=== PATIENT | female | born 1960 | race Two or more races ===

== ENCOUNTER → 2017-04-15 | Outpatient (REF) | payer MEDICARE, MEDICAID ==
[~2017-04-15] MED LIST: ATOR40TA75 PO; DULO1CAP2 PO; GABA-282; HYDR50TA70 PO; IBUP80TA PO; LISI10TA4 PO; ROBA500T PO; VOLT1GEL15 TOP
[2017-04-15 12:04] LABS: MEAN CORPUSCULAR HEMOGLOBIN 33.4 pg (27.0-33.0); MEAN CORPUSCULAR HGB CONC 34.8 g/dl (32.0-36.5); MEAN CORPUSCULAR VOLUME 95.9 fl (80.0-96.0); RED CELL DISTRIBUTION WIDTH 11.9 % (11.5-14.5); WHITE BLOOD COUNT 8.9 K/mm3 (4.0-10.0)
[2017-04-15 12:36] LABS: ALBUMIN 3.9 GM/DL (3.2-5.2); ALBUMIN/GLOBULIN RATIO 1.03 (1.00-1.93); ALKALINE PHOSPHATASE 85 U/L (45-117); ALT/SGPT 48 U/L (12-78); ANION GAP 7 MEQ/L (8-16); AST/SGOT 19 U/L (15-37); BILIRUBIN,TOTAL 0.3 MG/DL (0.2-1.0); BLOOD UREA NITROGEN 11 MG/DL (7-18); CALCIUM LEVEL 9.2 MG/DL (8.5-10.1); CARBON DIOXIDE LEVEL 29 MEQ/L (21-32); CHLORIDE LEVEL 105 MEQ/L (98-107); CHOLESTEROL LEVEL 339 MG/DL (<200); CREATININE FOR GFR 0.76 MG/DL (0.55-1.02); GLOMERULAR FILTRATION RATE > 60.0 (>51); GLUCOSE, FASTING 98 MG/DL (70-105); POTASSIUM SERUM 4.3 MEQ/L (3.5-5.1); SODIUM LEVEL 141 MEQ/L (136-145); TOTAL PROTEIN 7.7 GM/DL (6.4-8.2); TRIGLYCERIDES LEVEL 457 MG/DL (<150)
[2017-04-15 12:50] LABS: BASOPHILS 2 % (0-4); EOSINOPHILS 1 % (0-5)
[2017-04-20 08:06] LABS: ACETAMINOPHEN Negative ug/mL (10-30); AMITRIPTYLINE None Detected (Not Estab.); BUTALBITAL None Detected ug/mL (1-10); DESIPRAMINE None Detected (Not Estab.); DIAZEPAM None Detected ug/mL (0.1-0.9); DOXEPIN None Detected (Not Estab.); ETHANOL Negative % (0.000-0.010); NORCHLORDIAZEPOXIDE None Detected ug/mL (0.1-0.6); NORDIAZEPAM None Detected ug/mL (0.1-1.4); NORDOXEPIN None Detected (Not Estab.); NORTRIPTYLINE None Detected ng/mL (50-150); PENTOBARBITAL None Detected ug/mL (1-5); PHENOBARBITAL None Detected ug/mL (15-40); PHENYTOIN None Detected ug/mL (10.0-20.0)
== END ==
LOC: M SFHCLERA 09:24
PROVIDERS: ATTEND Family Medicine
DX: I10 Essential (primary) hypertension (principal); E78.5 Hyperlipidemia, unspecified; G89.29 Other chronic pain; F31.32 Bipolar disorder, current episode depressed, moderate; Z79.899 Other long term (current) drug therapy
CPT/HCPCS: 80053; 80061; 82043; 83036; 84443; 84600; 85007; 85027; G0463; G0480

== ENCOUNTER 2017-04-27 17:56 | Emergency (ER) | payer MEDICARE, MEDICAID ==
[~2017-04-27] VITALS: Ht 160 cm; Wt 63.6 kg
[2017-04-27] MEDS ORDERED: IBUP80TA PO (18:14)
[2017-04-27] MEDS ORDERED: GABA-282 (18:14)
[2017-04-27] MEDS ORDERED: LISI10TA4 PO (18:14)
[2017-04-27] MEDS ORDERED: HYDR50TA70 PO (18:14)
[2017-04-27] MEDS ORDERED: DULO1CAP2 PO (18:14)
[2017-04-27] MEDS ORDERED: ATOR40TA75 PO (18:14)
[2017-04-27] MEDS ORDERED: VOLT1GEL15 TOP (18:14)
--- NOTE | 2017-04-27 19:40 | REPUSA ---
CT of the head Clinical history: trauma. Technique: Multiple axial CT images were obtained through the head without administration of contrast . Findings: The ventricles and sulci are symmetric bilaterally. There is no evidence of acute hemorrhag e or infarct. There is no midline shift, mass effect, or extra-axial fluid collection. The osseous st ructures are unremarkable. The visualized paranasal sinuses and mastoid air cells are clear. Impression: Negative study.
--- NOTE | 2017-04-27 19:40 | REPUSA ---
CT of the cervical spine Clinical history: trauma. Technique: Multiple axial CT images were obtained through the cervical spine without administration o f contrast. Coronal and sagittal 3-D reconstructed images were also obtained. Comparison: None. Findings: The cervical vertebral bodies are in satisfactory positioning and alignment. No fractures or dislocat ions are demonstrated. The odontoid process is intact. There is mild degenerative disc disease at C5/ C6. Intervertebral disc spaces are otherwise well-maintained. There is no evidence of facet subluxati on. The neural foramen appear grossly patent. The cervical cranial junction is intact. The cervical s florencia canal demonstrates normal caliber and contour without evidence of spinal stenosis. The surround ing soft tissues are within normal limits. Impression: No acute fracture or traumatic injury. Mild degenerative disc disease at C5/C6.
[2017-04-27] MEDS ORDERED: PERCOCET 5MG/325MG TAB PO ONE (20:00)
[2017-04-27] MEDS ORDERED: OXYCODONE/APAP 5MG/325MG(BULK FOR ED) 1 TABLET PO ONE (21:30)
[2017-04-27] MEDS ORDERED: ROBA500T PO (21:30)
[2017-04-27] MEDS ORDERED: METHOCARBAMOL 500 MG TAB PO ONE (21:30)
[2017-04-27 21:47] VITALS: BP 148/71
--- NOTE | 2017-04-28 08:04 | REP ---
LEFT KNEE: Five views. HISTORY: Trauma. FINDINGS: Five views of the left knee demonstrate that the patient is status post left knee arthroplasty. No fracture or subluxation is seen. IMPRESSION: No fracture noted. Signed by Boris Norton MD 04/28/2017 08:05 A
--- NOTE | 2017-04-28 08:04 | REP ---
PELVIS LEFT HIP: Three views. HISTORY: Trauma. FINDINGS: AP view of the pelvis and AP and frog-leg views of the left hip demonstrate an intact bony pelvic ring. No hip or sacral fracture is seen. No pelvic fracture is noted. The left hip views are unremarkable. IMPRESSION: No fracture noted. Signed by Boris Norton MD 04/28/2017 08:05 A
--- NOTE | 2017-04-28 08:05 | REP ---
RIGHT FOOT SERIES: Four views. HISTORY: Trauma. FINDINGS: Four views of the right foot demonstrate mild diffuse osteopenia. Bones joints and soft tissues are otherwise unremarkable. No fracture is seen. IMPRESSION: No fracture noted. Signed by Boris Norton MD 04/28/2017 08:30 A
== END 2017-04-27 22:25 | disposition home or self-care (01) ==
LOC: M ED 17:56
DX: M25.552 Pain in left hip (principal); M25.562 Pain in left knee; M79.671 Pain in right foot; I10 Essential (primary) hypertension; F41.9 Anxiety disorder, unspecified; F33.9 Major depressive disorder, recurrent, unspecified; Z79.899 Other long term (current) drug therapy

== ENCOUNTER → 2017-05-12 | Outpatient (CLI) | payer MEDICARE, MEDICAID ==
--- NOTE | 2017-06-02 01:53 | ECWPNPC ---
PATIENT NAME: CORIE CAST : 1960 GENDER: FEMALE VISIT DATE: 05/12/2017 DISCHARGE DATE: 05/12/17 1543 VISIT LOCKED DATE TIME: PHYSICIAN: LONNIE MCBRIDE RESOURCE: LONNIE MCBRIDE REASON FOR APPOINTMENT 1. BACK HISTORY OF PRESENT ILLNESS NEW PATIENT CONSULT: WHEN DID YOUR PAIN FIRST START? . BRIEFLY DESCRIBE HOW YOUR PAIN STARTED? . HOW DOES YOUR PAIN CHANGE WITH TIME? . DOES YOUR PAIN AWAKEN YOU FROM SLEEP? . HOW MANY HOURS OF SLEEP DO YOU NORMALLY GET? . ANY DIAGNOSTIC TESTING? . FACILITY WHERE TESTS WERE DONE? ____. PAIN TREATMENT TREATMENT YES CANCER HAVE YOU EVER HAD ANY TYPE OF CANCER?YES UTERINE NO. PAIN SCREENING: PATIENT HAS A COMPLAINT OF ACUTE OR CHRONIC PAIN :YES FALL RISK SCREENING: SCREENING :NO FALLS IN THE PAST YEAR MARTINEZ INVENTORY: QUESTIONNAIRE ASSESSEDYES SCORE VALUE CALCULATED YES SCORE: 8/63 DENIES SUICIDAL OR HOMICIDAL IDEATION TODAY'S VISIT: NOTES: REFERRED BY DR DONN SORENSEN FOR LOW BACK PAIN. RECENTLY MOVED FROM [place] AND STATES WAS ON CHRONIC OPIATES THERE. PAIN STARTED OVER 20 YEARS AGO WHEN SHE FELL A LAB HEAD. HAD INJECTION S IN EARLY [address] YOLA PERSAUD WITH SEDATION. IS NOT NOT SURE WHAT INJECTIONS WERE DONE. HAD PHYSICAL THERAPY - [facility] WHEN SHE LIVED IN [place]. USES CANE BUT ALSO A WALKER FOR SUPOPRT. PAIN IS CENTERED IN LOW BACK AND INTO LEGS TO FOOT. HAS A SENSE OF TINGLING. LAST MRI WAS WITHIN LAST YEAR BY DR PERSAUD. NO LOSS OF BOWEL CONTROL. N/T IN BOTH FEET. NO RECENT EMG/NCS. CURRENT MEDICATIONS TAKING MIRAPEX 0.25 MG TABLET 1 TABLET BEFORE BEDTIME ORALLY ONCE A DAY TAKING GABAPENTIN 300 MG CAPSULE 1 CAPSULE ORALLY 1 IN AM, 1 IN AFTERNOON AND 2 AT BEDTIME TAKING IBUPROFEN 800 MG TABLET 1 TABLET WITH FOOD OR MILK ORALLY THREE TIMES A DAY TAKING VOLTAREN 1 % GEL DIRECTED TRANSDERMAL EVERY 4 HOURS NEEDED TAKING SEROQUEL 300 MG TABLET 1 TABLET AT BEDTIME ORALLY BEFORE BEDTIME TAKING DULOXETINE HCL 30 MG CAPSULE DELAYED RELEASE PARTICLES 1 CAPSULE ORALLY DAILY TAKING HYDROXYZINE HCL 50 MG TABLET 1 TABLET NEEDED ORALLY EVERY 6 HRS NEEDED FOR ANXIETY TAKING ATORVASTATIN CALCIUM 40 MG TABLET 1 TABLET ORALLY ONCE A DAY TAKING TRAZODONE HCL 150 MG TABLET 1 TABLET AT BEDTIME ORALLY ONCE A DAY NOT-TAKING CLARITIN 10 MG TABLET 1 TABLET ORALLY ONCE A DAY NOT-TAKING LISINOPRIL 10 MG TABLET 1 TABLET ORALLY ONCE A DAY MEDICATION LIST REVIEWED AND RECONCILED WITH THE PATIENT PAST MEDICAL HISTORY CHRONIC BACK AND KNEE PAIN BIPOLAR/ MOOD SWINGS/ PANIC DISORDER HTN HIGH CHOLESTEROL UTERINE CANCER GERD OSTEOPOROSIS ALLERGIES N.K.D.A. SURGICAL HISTORY 2 C-SETIONS TUBAL FULL HYSTERECTOMY AGE 27 LEFT KNEE REPLACED 2014 LEFT WRIST ORIF FAMILY HISTORY FATHER: MOTHER: , DIAGNOSED WITH HEART DISEASE 2 BROTHER(S) , 1 SISTER(S) . 3DAUGHTER(S) - HEALTHY. SOCIAL HISTORY GENERAL: TOBACCO USE ARE YOU A:FORMER SMOKER HOW LONG HAS IT BEEN SINCE YOU LAST SMOKED?1-5 YEARS ALCOHOL SCREENING DID YOU HAVE A DRINK CONTAINING ALCOHOL IN THE PAST YEAR?YES HOW OFTEN DID YOU HAVE A DRINK CONTAINING ALCOHOL IN THE PAST YEAR?MONTHLY OR LESS (1 POINT) POINTS1 INTERPRETATIONNEGATIVE DIET: REGULAR. EXERCISE: WALKS WITH WALKER. DENOMINATIONAL [id number] RESTORATIONIST LEARNING BARRIERS / SPECIAL NEEDS HEARING IMPAIRED?NO VISION IMPAIRED?YES :CORRECTIVE LENSES COGNITIVELY IMPAIRED?NO READINESS TO LEARN?YES LEARNING PREFERENCES?NO LEARNING CAPABILITIES PRESENT?YES EMOTIONAL BARRIERS? BIPOLAR SPECIAL DEVICES?YES :[employer] ASSOCIATE NEEDED?NO PAIN CLINIC PFS, CLERGY, PUBLIC HEALTH REFERRALS PFS REFERRAL NEEDED?NO CLERGY REFERRAL NEEDED?NO PUBLIC HEALTH REFERRAL NEEDED?NO WAS THE PROVIDER NOTIFIED OF ANY PERTINENT INFO?NO HAS THE PATIENT BEEN EDUCATED REGARDING HIS/HER PLAN OF CARE?YES HAS THE PATIENT BEEN EDUCATED REGARDING PAIN, THE RISK FOR PAIN, THE IMPORTANCE OF EFFECTIVE PAIN MANAGEMENT, AND THE PAIN ASSESSMENT PROCESS?YES PATIENT: ____. ADVANCE DIRECTIVES HEALTH CARE PROXY?NO WOULD YOU LIKE MORE INFORMATION? IS CURRENTLY WORKING ON IT LIVING WILL?NO WOULD YOU LIKE MORE INFORMATION? CURRENTLY WORKING ON IT HOSPITALIZATION/MAJOR DIAGNOSTIC PROCEDURE ABOVE REVIEW OF SYSTEMS REVIEWED BY: PROVIDER: LONNIE ENGLISH . CONSTITUTIONAL: ANY CHANGE IN YOUR MEDICAL CONDITION? NO . CHILLS NO . FEVER NO . INFECTION: DO YOU HAVE NEW INFECTIONS? NO . DO YOU HAVE HISTORY OF MRSA? NO . MUSCULOSKELETAL: ANY NEW PATTERNS OF PAIN OR NUMBNESS? YES LEFT ARM AND SHOULDER REALLY BAD . SYTEMIC LUPUS NO . GASTROENTEROLOGY: ANY NEW CHANGE IN BOWEL CONTROL? NO . BARRETTS ESOPHAGUS NO . CIRRHOSIS NO . HEPATITIS NO . LIVER FAILURE NO . ACID REFLUX NO . UNEXPLAINED WEIGHT LOSS NO . GENITOURINARY: ANY NEW CHANGE IN BLADDER CONTROL? NO - OCCASIONAL LEAKAGE . IS THERE A CHANCE YOU COULD BE ? NO . HEMATOLOGY/LYMPH: DO YOU TAKE ANY BLOOD THINNERS? (FOR EXAMPLE- COUMADIN, PLAVIX, AGGRENOX, PLATEL, PRADAXA, OR XARELTO) NO . WHEN WAS YOUR LAST DOSE? DATE: TIME: . LOW PLATELET COUNT NO . SICKLE CELL DISEASE NO . VON WILLIEBRANDS NO . FACTOR V LEIDEN NO . THALLASEMIA NO . ANEMIA NO . EASY BRUISING NO . NEUROLOGY: HAVE YOU FALLEN IN THE PAST 6 MONTHS? YES, A COUPLE OF WEEKS AGO TRIPPED OVER HER FEET / WENT TO THE ER . ANY NEW EXTREMITY NUMBNESS OR WEAKNESS? NO . HEAD INJURY NO . DEMENTIA NO . CEREBRAL PALSY NO . MULTIPLE SCLEROSIS NO . DIZZINESS NO . HEADACHE NO . STROKES NO . VERTIGO NO . CARDIOLOGY: DO YOU HAVE A PACEMAKER OR DEFIBRILLATOR? NO . ANGINA NO . HEART ATTACK NO . HEART SURGERY NO . CONGESTIVE HEART FAILURE/FLUID OVERLOAD NO . CHEST PAIN NO . HIGH BLOOD PRESSURE YES . IRREGULAR HEART BEAT NO . RESPIRATORY: HAVE YOU BEEN SICK IN THE PAST WEEK? NO . FEVER NO . FLU LIKE SYMPTOMS? NO . CPAP NO . BYPAP NO . ASTHMA NO . EMPHYSEMA NO . CHRONIC LUNG DISEASES NO . SHORTNESS OF BREATH ON EXERTION NO . DO YOU USE ANY TYPE OF TOBACCO (SMOKE, SMOKELESS, CHEW)? NO . COUGH NO . SNORING NO . INTEGUMENTARY: DO YOU HAVE ANY RASHES OR OPEN SORES? NO . ALLERGIC/IMMUNO: ARE YOU ALLERGIC TO SHELLFISH OR IV DYE? NO . ANY NEW ALLERGIES? NO . PSYCHIATRIC: DO YOU HAVE THOUGHTS OF HURTING YOURSELF OR SOMEONE ELSE? NO . ARE YOU ABUSED, NEGLECTED, OR IN AN UNSAFE ENVIRONMENT? NO . ENDOCRINOLOGY: ARE YOU DIABETIC? NO . THYROID DISORDER NO . OTHER: DO YOU NEED ANY PRESCRIPTIONS? YES . IF YES, PLEASE LIST: PAIN MEDS . ANY NEW PROBLEMS WITH YOUR MEDICATIONS? NO . WHEN DID YOU LAST EAT? ____ . WHEN DID YOU LAST DRINK? ____ . WHAT DID YOU LAST DRINK? ____ . NAME OF PERSON DRIVING YOU HOME? ____ . DO YOU HAVE ANY OTHER QUESTIONS OR CONCERNS NO . PSYCHOLOGY: ARE YOU RECEIVING COUNSELING? HISTORY OF BIPOLAR DISORDER - HAS NOT YET SEEN A BEHAVIORAL HEALTH PROVIDER . VITAL SIGNS WT 149.6 LBS, HT 63 IN, BMI 26.50 INDEX, BP 136/87 MM HG, HR 79 /MIN, RR 16 /MIN, TEMP 96.9 F, OXYGEN SAT % 93%, NA INITIALS SC 14:37, REVIEWED BY: NL. EXAMINATION GENERAL EXAMINATION: GENERAL APPEARANCE:APPEARS OLDER THAN STATES AGE. PSYCHALERT , ORIENTED X 3 , APPROPRIATE MOOD AND AFFECT . HEENT:NORMOCEPHALIC, NO LYMPHADENOPATHY, NO THYROMEGLY. LUNGS:CLEAR TO AUSCULTATION BILATERALLY, NO WHEEZES, RALES OR RHONCHI. HEART:S1, S2 IN A REGULAR RATE AND RHYTHM. NO SIGNIFICANT MURMURS, RUBS OR GALLOPS NOTED. MUSCULOSKELETAL:WEAKNESS BILERALLY IN QUADS, NO SPECIFIC FOT DROP. POINT TENDERNESS OVER LUMBAR SPINOUS PROCESSES AND ACROSS LUMBOSACRAL AXIS. EXQUISITE TENDERNESS OVER BILATERAL SIJ REGION. CAN FLEX TO 30 DEGREES, EXTEND TO 5 DEGREES. SLR POS AT 10 DEGREES BILATERALLY. . EXTREMITIES:NO EDEMA . NEUROLOGIC EXAM:CN'S II-XII GROSSLY INTACT, PATCHY DYSESTHESIA BILATERAL LOWER EXTREMITIES, DTR'S TR - 1+ BILATERAL UPPER AND LOWER EXTREMITIES. NO CLONUS. ASSESSMENTS MYALGIA - M79.1 (PRIMARY) FIBROMYALGIA - M79.7 LUMBAGO WITH SCIATICA, RIGHT SIDE - M54.41 LUMBAGO WITH SCIATICA, LEFT SIDE - M54.42 OTHER CHRONIC PAIN - G89.29 TREATMENT MYALGIA START CARISOPRODOL TABLET, 350 MG, 1 TABLET NEEDED, ORALLY, BID MDD=2, 30 DAY(S), 60, REFILLS 1 NOTES: NEED RECORDS FROM DR YOLA ROSE [place] [phone], FALLS CARE PLAN: 1. RECOMMEND REMOVING ALL THROW RUGS. 2. RECOMMEND NIGHT LIGHTS 3. RECOMMEND WEARING RUBBER SOLED SHOES AND TO NOT GO BAREFOOT. 4.. ADVISED TO CHANGE POSITION SLOWLY FROM SUPINE TO STANDING TO AVOID DIZZINESS. 5. ADVISED TO USE ASSISTIVE DEVICE SUCH CANE OR WALKER 6. USE LIFELINE SERVICES OR KEEP PORTABLE PHONE READILY AVAILABLE, RISKS AND BENEFITS OF NARCOTIC/OPIOD MEDICATIONS WERE REVIEWED WITH PATIENT - THIS INCLUDES BUT IS NOT LIMITED TO RISK OF DEPENDANCE/DEVELOPMENT OF ADDICTION, MOOD DISTURBANCE AND DEPRESSION, OSTEOPOROSIS, HORMONAL AND LABIDAL CHANGES, RESPIRATORY DEPRESSION AND . PATIENT IS ADVISED NOT TO DRIVE WHILE ON THESE MEDICATIONS. CLINICAL NOTES: ISTOP REGISTRY REVIEWED AND DEMNOSTRATES COMPLLIANCE. #[id number]. PROCEDURE CODES FA211 ESTABILISHED PATIENT [facility] FACILITY CHARGE G8783 BP SCR PRFRM RCMDD DEFIND SCR INTVL G8730 PAIN ASSESS POS TOOL F/U PLAN DOC 3016F PT SCRND UNHLTHY [place] USE 1123F ACP DISCUSS/DSCN MKR DOCD 1036F TOBACCO NON-USER 0518F FALL PLAN OF CARE DOCD G8427 DOC MEDS VERIFIED W/PT OR RE G8420 BMI<30 AND >=22 CALC & DOCU 3288F FALL RISK ASSESSMENT DOCD DISPOSITION & COMMUNICATION FOLLOW UP 3 WEEKS (REASON: [place] DR YOLA PERSAUD [phone] NEED OFFICE, INJECTION TREATMENT REPORTS AND RECENT MRIS OF LUMBAR) ELECTRONICALLY SIGNED BY ISIDRA CHU ON 06/01/2017 AT 05:13 PM EDT DISCLAIMER : THIS IS A VISIT SUMMARY EXTRACTED FROM THE [employer] CHART. IT IS NOT A COPY OF THE [employer] PROGRESS NOTE. MTDD
== END ==
LOC: M PAIN 14:00
PROVIDERS: ATTEND Nurse Practitioner Family
DX: G89.29 Other chronic pain (principal); M79.7 Fibromyalgia; M54.41 Lumbago with sciatica, right side; M54.42 Lumbago with sciatica, left side; F31.32 Bipolar disorder, current episode depressed, moderate; I10 Essential (primary) hypertension; E78.00 Pure hypercholesterolemia, unspecified; E78.5 Hyperlipidemia, unspecified; K21.9 Gastro-esophageal reflux disease without esophagitis; M85.80 Other specified disorders of bone density and structure, unspecified site; G25.81 Restless legs syndrome; Z79.1 Long term (current) use of non-steroidal anti-inflammatories (NSAID); Z79.899 Other long term (current) drug therapy; Z87.891 Personal history of nicotine dependence

== ENCOUNTER → 2017-06-01 | Outpatient (CLI) | payer MEDICARE, MEDICAID ==
--- NOTE | 2017-06-28 00:14 | ECWPNPC ---
PATIENT NAME: CORIE CAST : 1960 GENDER: FEMALE VISIT DATE: 06/01/2017 DISCHARGE DATE: 06/01/17 1241 VISIT LOCKED DATE TIME: PHYSICIAN: LONNIE MCBRIDE RESOURCE: LONNIE MCBRIDE REASON FOR APPOINTMENT 1. LOW BACK HISTORY OF PRESENT ILLNESS HISTORY OF PRESENT ILLNESS: PAIN THE PATIENT DESCRIBES THE PAIN... FALL RISK SCREENING: SCREENING :NO FALLS IN THE PAST YEAR TODAY'S VISIT: NOTES: RATES PAIN TODAY 10/10. DESCRIBES PAIN CONSTANT, ACHING, TENDER AND THROBBING. PAIN INVOLES THE ENTIRE BODY, WITH THE WORST AREAS AT LOW BACK AND ACROSS THE SHOULDERS. STATES HAS HAD LESB IN THE PAST WITH GOOD EFFECT. STATES SOMA DOES HELP. WILL BE ATARTING THE [employer] PROGRAM. . CURRENT MEDICATIONS TAKING CARISOPRODOL 350 MG TABLET 1 TABLET NEEDED ORALLY BID MDD=2 TAKING LOSARTAN POTASSIUM 50 MG TABLET 1 TABLET ORALLY ONCE A DAY TAKING SEROQUEL 300 MG TABLET 1 TABLET AT BEDTIME ORALLY BEFORE BEDTIME TAKING TRAZODONE HCL 150 MG TABLET 1 TABLET AT BEDTIME ORALLY ONCE A DAY TAKING HYDROXYZINE HCL 50 MG TABLET 2 TABLET NEEDED ORALLY EVERY 6 HRS TAKING ATORVASTATIN CALCIUM 80 MG TABLET 1 TABLET ORALLY ONCE A DAY TAKING DULOXETINE HCL 30 MG CAPSULE DELAYED RELEASE PARTICLES 1 CAPSULE ORALLY TWICE A DAY TAKING GABAPENTIN 300 MG CAPSULE 1 CAPSULE ORALLY 1 IN AM, 1 IN AFTERNOON AND 2 AT BEDTIME TAKING IBUPROFEN 800 MG TABLET 1 TABLET WITH FOOD OR MILK ORALLY THREE TIMES A DAY NEEDED TAKING MIRAPEX 0.25 MG TABLET 1 TABLET BEFORE BEDTIME ORALLY ONCE A DAY TAKING VOLTAREN 1 % GEL 4G TRANSDERMAL ON THE LOW BACK EVERY 6 HOURS NEEDED NOT-TAKING ROPINIROLE HCL 0.25 MG TABLET 1 TABLET 1 TO 3 HOURS BEFORE BEDTIME ORALLY ONCE A DAY, NOTES: PLEASE CANCEL THE MIRAPEX AND FILL THIS INSTEAD NOT-TAKING CLARITIN 10 MG TABLET 1 TABLET ORALLY ONCE A DAY MEDICATION LIST REVIEWED AND RECONCILED WITH THE PATIENT PAST MEDICAL HISTORY CHRONIC BACK AND KNEE PAIN BIPOLAR/ MOOD SWINGS/ PANIC DISORDER HTN HIGH CHOLESTEROL UTERINE CANCER GERD OSTEOPOROSIS ALLERGIES N.K.D.A. SURGICAL HISTORY 2 C-SETIONS TUBAL FULL HYSTERECTOMY AGE 27 LEFT KNEE REPLACED 2014 LEFT WRIST ORIF SOCIAL HISTORY GENERAL: TOBACCO USE ARE YOU A:FORMER SMOKER HOW LONG HAS IT BEEN SINCE YOU LAST SMOKED?1-5 YEARS ALCOHOL SCREENING DID YOU HAVE A DRINK CONTAINING ALCOHOL IN THE PAST YEAR?YES POINTS1 INTERPRETATIONNEGATIVE HOW OFTEN DID YOU HAVE A DRINK CONTAINING ALCOHOL IN THE PAST YEAR?MONTHLY OR LESS (1 POINT) HOW MANY DRINKS DID YOU HAVE ON A TYPICAL DAY WHEN YOU WERE DRINKING IN THE PAST YEAR?1 OR 2 (0 POINTS) HOW OFTEN DID YOU HAVE SIX OR MORE DRINKS ON ONE OCCASION IN THE PAST YEAR?NEVER (0 POINTS) RECREATIONAL DRUG USE DRUG USE?NO CAFFEINE CAFFEINE USE?YES HOW OFTEN AND HOW MUCH? COFFEE 3, PEPSI - 1-2 HIV / HEP-C SCREENING HIV TEST OFFERED TO PATIENT:YES DATE OFFERED:05/19/2017 TEST ACCEPTED:NO REASON:PATIENT DECLINED HEP-C TEST OFFERED TO PATIENT:NO OCCUPATION: DISABLED. DIET: REGULAR. EXERCISE: WALKS WITH WALKER. MARITAL STATUS: SINGLE. VOODOO [id number] ORTHODOX LANGUAGE LANGUAGES SPOKEN:ZAMBIAN LEARNING BARRIERS / SPECIAL NEEDS CHANGE FROM LAST VISIT?NO BARRIERS TO LEARNING?NO HEARING IMPAIRED?NO VISION IMPAIRED?YES :CORRECTIVE LENSES COGNITIVELY IMPAIRED?NO READINESS TO LEARN?YES LEARNING PREFERENCES?NO LEARNING CAPABILITIES PRESENT?YES EMOTIONAL BARRIERS?YES BIPOLAR SPECIAL DEVICES?YES :REED AKHTAR VOCATIONAL TEACHER NEEDED?NO PAIN CLINIC PFS, CLERGY, PUBLIC HEALTH REFERRALS PFS REFERRAL NEEDED?NO CLERGY REFERRAL NEEDED?NO PUBLIC HEALTH REFERRAL NEEDED?NO WAS THE PROVIDER NOTIFIED OF ANY PERTINENT INFO?NO HAS THE PATIENT BEEN EDUCATED REGARDING HIS/HER PLAN OF CARE?YES HAS THE PATIENT BEEN EDUCATED REGARDING PAIN, THE RISK FOR PAIN, THE IMPORTANCE OF EFFECTIVE PAIN MANAGEMENT, AND THE PAIN ASSESSMENT PROCESS?YES PATIENT: ____. ADVANCE DIRECTIVES HEALTH CARE PROXY?NO WOULD YOU LIKE MORE INFORMATION? IS CURRENTLY WORKING ON IT LIVING WILL?NO WOULD YOU LIKE MORE INFORMATION? CURRENTLY WORKING ON IT HOSPITALIZATION/MAJOR DIAGNOSTIC PROCEDURE ABOVE REVIEW OF SYSTEMS REVIEWED BY: PROVIDER: LONNIE MCBRIDE WASHERY BOSS . CONSTITUTIONAL: ANY CHANGE IN YOUR MEDICAL CONDITION? NO . CHILLS NO . FEVER NO . INFECTION: DO YOU HAVE NEW INFECTIONS? NO . DO YOU HAVE HISTORY OF MRSA? NO . MUSCULOSKELETAL: ANY NEW PATTERNS OF PAIN OR NUMBNESS? NO . GASTROENTEROLOGY: ANY NEW CHANGE IN BOWEL CONTROL? NO . GENITOURINARY: ANY NEW CHANGE IN BLADDER CONTROL? NO . IS THERE A CHANCE YOU COULD BE ? NO . HEMATOLOGY/LYMPH: DO YOU TAKE ANY BLOOD THINNERS? (FOR EXAMPLE- COUMADIN, PLAVIX, AGGRENOX, PLATEL, PRADAXA, OR XARELTO) NO . WHEN WAS YOUR LAST DOSE? DATE: TIME: . NEUROLOGY: HAVE YOU FALLEN IN THE PAST 6 MONTHS? YES DAUGHTER IS CONCERNED ABOUT FALLS . ANY NEW EXTREMITY NUMBNESS OR WEAKNESS? NO . CARDIOLOGY: DO YOU HAVE A PACEMAKER OR DEFIBRILLATOR? NO . RESPIRATORY: HAVE YOU BEEN SICK IN THE PAST WEEK? NO . FEVER NO . FLU LIKE SYMPTOMS? NO . COUGH NO . INTEGUMENTARY: DO YOU HAVE ANY RASHES OR OPEN SORES? NO . ALLERGIC/IMMUNO: ARE YOU ALLERGIC TO SHELLFISH OR IV DYE? NO . ANY NEW ALLERGIES? NO . PSYCHIATRIC: DO YOU HAVE THOUGHTS OF HURTING YOURSELF OR SOMEONE ELSE? NO . ARE YOU ABUSED, NEGLECTED, OR IN AN UNSAFE ENVIRONMENT? NO . ENDOCRINOLOGY: ARE YOU DIABETIC? NO . OTHER: DO YOU NEED ANY PRESCRIPTIONS? YES PAIN . IF YES, PLEASE LIST: ____ . ANY NEW PROBLEMS WITH YOUR MEDICATIONS? NO . WHEN DID YOU LAST EAT? ____ . WHEN DID YOU LAST DRINK? ____ . WHAT DID YOU LAST DRINK? ____ . NAME OF PERSON DRIVING YOU HOME? ____ . DO YOU HAVE ANY OTHER QUESTIONS OR CONCERNS NO . VITAL SIGNS WT 150 LBS, HT 63 IN, BMI 26.57 INDEX, BP 138/81 MM HG, HR 80 /MIN, RR 18 /MIN, TEMP 98.7 F, OXYGEN SAT % 93%, NA INITIALS SC 11:28. EXAMINATION GENERAL EXAMINATION: PSYCHALERT , ORIENTED X 3 , APPROPRIATE MOOD AND AFFECT . LUNGS:CLEAR TO AUSCULTATION BILATERALLY. HEART:HEART RATE REGULAR. MUSCULOSKELETAL:MUSCLE STRENGTH TESTING 4/5 LEFT LOWER EXTREMITY WITH SIGNIFICANT LEFT QUAD EAKNESS NOTED. ; 5/5 RIGHT LOWER EXTREMITY. SLOW TO RISE TO STANDING POSITION. IS ABLE TO STAND INDEPENDANTLY BUT DOES USE WALKER FOR BALANCE AND SUPPORT. NO OBVIOUS FOOT DROP WHEN WALKING., TRIGGER POINTS AND TIGHT FIBROUS BANDS NOTED OVER LUMBAR PARAVERTEBRAL MUSCLES. POINT TENDERNESS OVER THORACIC AND LUMBAR SPINOUS PROCESSES. . DIAGNOSTIC TESTS REVIEWEDMRI LUMBAR SPINE COMPLETED ON 06/01/16 ([facility] [place]) DEMONSTRATES MULTILEVEL DEGENERATIVE AND OR FACET OSTEOARTHRITIS WITHOUT SIGNIFICANT CENTRAL OR FORAMINAL ENCROUCHMENT. AT L4-5 ON THE LEFT THERE IS LOW GRADE STRESS RELATED EDEMA OF THE POSTERIOR ELEMENTS DUE TO FACET OSTEOARTHRITIS. . 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 CLINICAL NOTES: ISTOP REGISTRY REVIEWED AND DEMNOSTRATES COMPLLIANCE. . (REF # [id number]). PROCEDURE CODES FA211 ESTABILISHED PATIENT [facility] CHARGE G8730 PAIN ASSESS POS TOOL F/U PLAN DOC G8427 DOC MEDS VERIFIED W/PT OR RE DISPOSITION & COMMUNICATION FOLLOW UP AFTER INJECTION (REASON: CHECK AUTH FOR LESB) ELECTRONICALLY SIGNED BY ISIDRA CHU ON 06/27/2017 AT 07:27 PM EDT DISCLAIMER : THIS IS A VISIT SUMMARY EXTRACTED FROM THE [employer] CHART. IT IS NOT A COPY OF THE [employer] PROGRESS NOTE. JESÚSD
== END ==
LOC: M PAIN 10:30
PROVIDERS: ATTEND Nurse Practitioner Family
DX: G89.29 Other chronic pain (principal); M51.26 Other intervertebral disc displacement, lumbar region; M12.88 Other specific arthropathies, not elsewhere classified, other specified site; M79.1 Myalgia; F31.32 Bipolar disorder, current episode depressed, moderate; I10 Essential (primary) hypertension; E78.5 Hyperlipidemia, unspecified; K21.9 Gastro-esophageal reflux disease without esophagitis; Z79.1 Long term (current) use of non-steroidal anti-inflammatories (NSAID); Z79.899 Other long term (current) drug therapy; Z87.891 Personal history of nicotine dependence

== ENCOUNTER → 2017-10-01 | Outpatient (CLI) | payer MEDICARE, MEDICAID | LOC: M PAIN 10:45 | DX: M51.26 Other intervertebral disc displacement, lumbar region (principal); M79.7 Fibromyalgia; M25.561 Pain in right knee; I10 Essential (primary) hypertension; E78.5 Hyperlipidemia, unspecified; K21.9 Gastro-esophageal reflux disease without esophagitis; Z79.891 Long term (current) use of opiate analgesic; Z79.899 Other long term (current) drug therapy; Z87.891 Personal history of nicotine dependence | CPT/HCPCS: G0463 ==

== ENCOUNTER → 2017-10-19 | Outpatient (CLI) | payer MEDICARE, MEDICAID ==
[~2017-10-19] MED LIST changes: -ATOR40TA75 PO; -DULO1CAP2 PO; -GABA-282; -HYDR50TA70 PO; -IBUP80TA PO; +ISOVUE-M 300 61% 15ML VIAL (Q9967) As Ordered; +LIDOCAINE 1% SDV INJ 30 ML VIAL As Ordered; -LISI10TA4 PO; -ROBA500T PO; -VOLT1GEL15 TOP; +diazePAM 5 MG TAB As Ordered; +methylPREDNISolone SUSP 40 MG/ML (DEPO-medrol) VIAL (J1030) As Ordered; +oxyCODONE 5MG TAB As Ordered
== END ==
LOC: M PAIN 10:45
DX: G89.29 Other chronic pain (principal); M51.16 Intervertebral disc disorders with radiculopathy, lumbar region; F31.9 Bipolar disorder, unspecified; F41.0 Panic disorder [episodic paroxysmal anxiety]; I10 Essential (primary) hypertension; E78.00 Pure hypercholesterolemia, unspecified; K21.9 Gastro-esophageal reflux disease without esophagitis; Z79.899 Other long term (current) drug therapy; Z87.891 Personal history of nicotine dependence
CPT/HCPCS: J1030

== ENCOUNTER 2017-11-21 16:30 | Inpatient (IN) | payer MEDICARE, MEDICAID ==
[2017-11-21 16:56] LABS: BASO # 0.1 10^3/uL (0.0-0.2); BASO % 0.6 % (0.0-1.0); EOS % 0.1 % (0.0-3.0); HEMATOCRIT 30.1 % (36.0-47.0); HEMOGLOBIN 9.9 g/dl (12.0-16.0); IMMATURE GRANULOCYTE % 3.4 % (0-3.0); LYMPH # 3.2 10^3/uL (1.5-4.5); LYMPH % 23.5 % (24.0-44.0); MEAN CORPUSCULAR HEMOGLOBIN 28.5 pg (27.0-33.0); MEAN CORPUSCULAR HGB CONC 32.9 g/dl (32.0-36.5); MEAN CORPUSCULAR VOLUME 86.7 fl (80.0-96.0); MONO # 0.9 10^3/uL (0.0-0.8); NEUTROPHILS # 8.8 10^3/uL (1.8-7.7); NEUTROPHILS % 65.4 % (36.0-66.0); PLATELET COUNT, AUTOMATED 463 10^3/uL (150-450); RED BLOOD COUNT 3.47 10^6/uL (4.00-5.40); RED CELL DISTRIBUTION WIDTH 14.7 % (11.5-14.5); WHITE BLOOD COUNT 13.4 10^3/uL (4.0-10.0)
[2017-11-21 17:15] LABS: ANION GAP 10 MEQ/L (8-16); BLOOD UREA NITROGEN 8 MG/DL (7-18); CALCIUM LEVEL 8.3 MG/DL (8.5-10.1); CARBON DIOXIDE LEVEL 25 MEQ/L (21-32); CHLORIDE LEVEL 101 MEQ/L (98-107); CREATININE FOR GFR 0.55 MG/DL (0.55-1.30); GLOMERULAR FILTRATION RATE > 60.0 (>51); GLUCOSE, FASTING 110 MG/DL (70-100); SODIUM LEVEL 136 MEQ/L (136-145)
[2017-11-21 17:22] LABS: POTASSIUM SERUM 2.7 MEQ/L (3.5-5.1)
[2017-11-21 17:26] LABS: INFLUENZA A AMPLIFICATION NEGATIVE (NEGATIVE); INFLUENZA B AMPLIFICATION NEGATIVE (NEGATIVE)
[2017-11-21] MEDS ORDERED: ISOVUE-370 76% 100ML VIAL (Q9967) As Ordered (17:56)
[2017-11-21] MEDS: BENZONATATE 100 MG CAP PO ×2 (17:59→23:19)
[2017-11-21] MEDS: ONDANSETRON 4MG/2ML VIAL (J2405) IV (17:59)
[2017-11-21] MEDS: POTASSIUM CHLORIDE 10 MEQ SR TABLET PO (18:00)
[2017-11-21] MEDS: NS 1,000 ML IV (18:00)
[2017-11-21] MEDS: KCL 10MEQ/100ML SWI (KRUN) 10 MEQ in APPROPRIATE DILUENT 1 EA IV (18:15)
[2017-11-21] MEDS: PERCOCET 5MG/325MG TAB PO (18:22)
[2017-11-21 19:09] LABS: ALBUMIN 1.9 GM/DL (3.2-5.2); ALBUMIN/GLOBULIN RATIO 0.31 (1.00-1.93); ALKALINE PHOSPHATASE 185 U/L (45-117); ALT/SGPT 133 U/L (12-78); AST/SGOT 255 U/L (7-37); BILIRUBIN,DIRECT 0.2 MG/DL (0.0-0.2); BILIRUBIN,TOTAL 0.3 MG/DL (0.2-1.0); TOTAL PROTEIN 8.1 GM/DL (6.4-8.2)
[2017-11-21] MEDS ORDERED: ONDANSETRON 4MG/2ML VIAL (J2405) IV (19:45)
[2017-11-21] MEDS ORDERED: IPRATROPIUM 0.5MG/ALBUTEROL 2.5MG INH SOL UD 3ML (DUONEB)(J7620) NEB (19:45)
[2017-11-21] MEDS: IPRATROPIUM 0.5MG/ALBUTEROL 2.5MG INH SOL UD 3ML (DUONEB)(J7620) NEB (20:00)
[2017-11-21] MEDS: HEPARIN SOD (PORCINE) 5000 UNITS/ML VIAL SC (22:09)
[2017-11-21] MEDS: CARISOPRODOL 350 MG TAB PO (22:09)
[2017-11-21] MEDS: ATORVASTATIN 20 MG TAB PO (22:10)
[2017-11-21] MEDS: GABAPENTIN 300 MG CAP PO (22:10)
[2017-11-21] MEDS: traZODone 50 MG TAB PO (22:10)
[2017-11-21] MEDS: rOPINIRole 0.25 MG TAB(REQUIP) PO (22:10)
[2017-11-21] MEDS: MAGNESIUM OXIDE 400 MG TAB (MAG-OX) PO (22:11)
[2017-11-21] MEDS: KCL 20MEQ in NS 1000ML 1,000 ML IV (22:11)
[2017-11-21] MEDS: DULoxetine 30 MG CAP (CYMBALTA) PO (22:11)
[2017-11-21] MEDS: CEFTRIAXONE SOD 1 GM in APPROPRIATE DILUENT 1 EA IV (22:32)
[2017-11-21 23:15] LABS: MAGNESIUM LEVEL 2.2 MG/DL (1.8-2.4)
[2017-11-21 23:15] LABS: POTASSIUM SERUM 3.4 MEQ/L (3.5-5.1)
[2017-11-21] MEDS: ACETAMINOPHEN TAB 650MG DOSE (2X325MG) PO (23:19)
[2017-11-21] MEDS: AZITHROMYCIN INJ 500 MG, VIAL MATE ADAPTER 1 EACH in D5W 250 ML IV (23:20)
[2017-11-22] MEDS: IPRATROPIUM 0.5MG/ALBUTEROL 2.5MG INH SOL UD 3ML (DUONEB)(J7620) NEB ×4 (02:00→19:44)
[2017-11-22] MEDS: BENZONATATE 100 MG CAP PO ×3 (03:55→22:35)
[2017-11-22] MEDS: ACETAMINOPHEN TAB 650MG DOSE (2X325MG) PO (03:55)
[2017-11-22] MEDS: HEPARIN SOD (PORCINE) 5000 UNITS/ML VIAL SC ×3 (05:19→21:36)
[2017-11-22 06:05] LABS: HEMATOCRIT 25.2 % (36.0-47.0); HEMOGLOBIN 8.3 g/dl (12.0-16.0); MEAN CORPUSCULAR HEMOGLOBIN 29.3 pg (27.0-33.0); MEAN CORPUSCULAR HGB CONC 32.9 g/dl (32.0-36.5); PLATELET COUNT, AUTOMATED 384 10^3/uL (150-450); RED BLOOD COUNT 2.83 10^6/uL (4.00-5.40); RED CELL DISTRIBUTION WIDTH 14.9 % (11.5-14.5); WHITE BLOOD COUNT 11.8 10^3/uL (4.0-10.0)
[2017-11-22 06:16] LABS: ANION GAP 8 MEQ/L (8-16); BLOOD UREA NITROGEN 7 MG/DL (7-18); CALCIUM LEVEL 7.6 MG/DL (8.5-10.1); CARBON DIOXIDE LEVEL 24 MEQ/L (21-32); CHLORIDE LEVEL 107 MEQ/L (98-107); CREATININE FOR GFR 0.42 MG/DL (0.55-1.30); GLOMERULAR FILTRATION RATE > 60.0 (>51); GLUCOSE, FASTING 119 MG/DL (70-100); POTASSIUM SERUM 3.3 MEQ/L (3.5-5.1); SODIUM LEVEL 139 MEQ/L (136-145)
[2017-11-22] MEDS: POTASSIUM CHLORIDE 10 MEQ SR TABLET PO ×2 (06:31→21:36)
[2017-11-22] MEDS: GABAPENTIN 300 MG CAP PO ×3 (08:27→21:36)
[2017-11-22] MEDS: CARISOPRODOL 350 MG TAB PO ×2 (08:27→21:36)
[2017-11-22] MEDS: INFLUENZA QUADRIVALENT PF VACCINE 0.5ML SYRINGE (90686) IM (08:29)
[2017-11-22 10:47] LABS: ALBUMIN 1.6 GM/DL (3.2-5.2); ALKALINE PHOSPHATASE 152 U/L (45-117); ALT/SGPT 102 U/L (12-78); AST/SGOT 145 U/L (7-37); BILIRUBIN,DIRECT 0.2 MG/DL (0.0-0.2); BILIRUBIN,TOTAL 0.2 MG/DL (0.2-1.0)
[2017-11-22 11:00] LABS: ALBUMIN/GLOBULIN RATIO 0.36 (1.00-1.93)
[2017-11-22 11:01] LABS: TOTAL PROTEIN 6.1 GM/DL (6.4-8.2)
[2017-11-22] MEDS: DOXYCYCLINE HYCLATE 100 MG in D5W MINI-BAG PLUS 100 ML IV (12:27)
[2017-11-22] MEDS: KCL 20MEQ in NS 1000ML 1,000 ML IV (12:27)
[2017-11-22] MEDS: CEFTRIAXONE SOD 2 GM in APPROPRIATE DILUENT 1 EA IV (12:27)
[2017-11-22] MEDS: PERCOCET 5MG/325MG TAB PO ×2 (12:29→17:55)
[2017-11-22] MEDS ORDERED: LISINOPRIL 10 MG TAB PO (18:00)
[2017-11-22] MEDS: DULoxetine 30 MG CAP (CYMBALTA) PO (21:35)
[2017-11-22] MEDS: ATORVASTATIN 20 MG TAB PO (21:35)
[2017-11-22] MEDS: rOPINIRole 0.25 MG TAB(REQUIP) PO (21:36)
[2017-11-22] MEDS: traZODone 50 MG TAB PO (21:36)
[2017-11-23] MEDS: DOXYCYCLINE HYCLATE 100 MG in D5W MINI-BAG PLUS 100 ML IV (00:02)
[2017-11-23] MEDS: PERCOCET 5MG/325MG TAB PO ×4 (00:02→18:17)
[2017-11-23] MEDS: IPRATROPIUM 0.5MG/ALBUTEROL 2.5MG INH SOL UD 3ML (DUONEB)(J7620) NEB ×4 (01:40→20:36)
[2017-11-23] MEDS: KCL 20MEQ in NS 1000ML 1,000 ML IV ×2 (03:20→11:45)
[2017-11-23] MEDS: BENZONATATE 100 MG CAP PO ×4 (03:20→21:30)
[2017-11-23 06:03] LABS: HEMATOCRIT 25.9 % (36.0-47.0); HEMOGLOBIN 8.1 g/dl (12.0-16.0); MEAN CORPUSCULAR HEMOGLOBIN 28.7 pg (27.0-33.0); MEAN CORPUSCULAR HGB CONC 31.3 g/dl (32.0-36.5); MEAN CORPUSCULAR VOLUME 91.8 fl (80.0-96.0); PLATELET COUNT, AUTOMATED 370 10^3/uL (150-450); RED BLOOD COUNT 2.82 10^6/uL (4.00-5.40); RED CELL DISTRIBUTION WIDTH 15.2 % (11.5-14.5); WHITE BLOOD COUNT 9.7 10^3/uL (4.0-10.0)
[2017-11-23] MEDS: HEPARIN SOD (PORCINE) 5000 UNITS/ML VIAL SC ×3 (06:09→21:30)
[2017-11-23 06:20] LABS: ANION GAP 5 MEQ/L (8-16); BLOOD UREA NITROGEN 5 MG/DL (7-18); CALCIUM LEVEL 7.8 MG/DL (8.5-10.1); CARBON DIOXIDE LEVEL 26 MEQ/L (21-32); CHLORIDE LEVEL 112 MEQ/L (98-107); CREATININE FOR GFR 0.47 MG/DL (0.55-1.30); GLOMERULAR FILTRATION RATE > 60.0 (>51); GLUCOSE, FASTING 117 MG/DL (70-100); POTASSIUM SERUM 4.4 MEQ/L (3.5-5.1); SODIUM LEVEL 143 MEQ/L (136-145)
[2017-11-23] MEDS: GABAPENTIN 300 MG CAP PO ×3 (08:16→20:11)
[2017-11-23] MEDS: CARISOPRODOL 350 MG TAB PO ×2 (08:16→20:11)
[2017-11-23] MEDS: POTASSIUM CHLORIDE 10 MEQ SR TABLET PO ×2 (08:17→20:12)
[2017-11-23] MEDS: AZITHROMYCIN INJ 500 MG, VIAL MATE ADAPTER 1 EACH in D5W 250 ML IV (11:32)
[2017-11-23] MEDS ORDERED: MIRALAX *UNIT DOSE* 17GM PACKET PO (11:45)
[2017-11-23] MEDS: DOCUSATE SODIUM 100 MG CAP PO ×2 (12:11→20:11)
[2017-11-23] MEDS: CEFTRIAXONE SOD 2 GM in APPROPRIATE DILUENT 1 EA IV (12:43)
[2017-11-23 13:19] LABS: FERRITIN 586 NG/ML (8-252); IRON (FE) 48 UG/DL (50-170); PERCENT SATURATION 26.1 % (13.2-45.0); TOTAL IRON BINDING CAPACITY 184 UG/DL (250-450)
[2017-11-23 13:26] LABS: VITAMIN B12 LEVEL 438 PG/ML (247-911)
[2017-11-23 13:27] LABS: FOLATE 2.9 NG/ML (>5.4)
[2017-11-23 17:42] LABS: IMMEDIATE SPIN CROSSMATCH 1 2
[2017-11-23] MEDS: traZODone 50 MG TAB PO (20:10)
[2017-11-23] MEDS: ATORVASTATIN 20 MG TAB PO (20:11)
[2017-11-23] MEDS: DULoxetine 30 MG CAP (CYMBALTA) PO (20:11)
[2017-11-23] MEDS: rOPINIRole 0.25 MG TAB(REQUIP) PO (20:12)
[2017-11-23 22:08] LABS: HEMOGLOBIN 10.9 g/dl (12.0-16.0)
[2017-11-23] MEDS: IBUPROFEN 800 MG TAB PO (22:55)
[2017-11-24] MEDS: PERCOCET 5MG/325MG TAB PO ×5 (00:20→23:28)
[2017-11-24] MEDS: IPRATROPIUM 0.5MG/ALBUTEROL 2.5MG INH SOL UD 3ML (DUONEB)(J7620) NEB ×4 (02:00→20:11)
[2017-11-24] MEDS: BENZONATATE 100 MG CAP PO ×5 (03:53→21:19)
[2017-11-24] MEDS: HEPARIN SOD (PORCINE) 5000 UNITS/ML VIAL SC ×3 (06:20→21:17)
[2017-11-24 06:22] LABS: HEMATOCRIT 34.6 % (36.0-47.0); MEAN CORPUSCULAR HEMOGLOBIN 28.5 pg (27.0-33.0); MEAN CORPUSCULAR HGB CONC 31.8 g/dl (32.0-36.5); MEAN CORPUSCULAR VOLUME 89.6 fl (80.0-96.0); PLATELET COUNT, AUTOMATED 334 10^3/uL (150-450); RED BLOOD COUNT 3.86 10^6/uL (4.00-5.40); RED CELL DISTRIBUTION WIDTH 16.1 % (11.5-14.5); WHITE BLOOD COUNT 9.1 10^3/uL (4.0-10.0)
[2017-11-24 06:35] LABS: ALBUMIN 1.6 GM/DL (3.2-5.2); ALBUMIN/GLOBULIN RATIO 0.31 (1.00-1.93); ALKALINE PHOSPHATASE 149 U/L (45-117); ALT/SGPT 70 U/L (12-78); ANION GAP 6 MEQ/L (8-16); AST/SGOT 51 U/L (7-37); BILIRUBIN,TOTAL 0.2 MG/DL (0.2-1.0); BLOOD UREA NITROGEN 4 MG/DL (7-18); CALCIUM LEVEL 8.2 MG/DL (8.5-10.1); CARBON DIOXIDE LEVEL 25 MEQ/L (21-32); CHLORIDE LEVEL 113 MEQ/L (98-107); CREATININE FOR GFR 0.42 MG/DL (0.55-1.30); GLOMERULAR FILTRATION RATE > 60.0 (>51); GLUCOSE, FASTING 122 MG/DL (70-100); MAGNESIUM LEVEL 1.8 MG/DL (1.8-2.4); POTASSIUM SERUM 4.4 MEQ/L (3.5-5.1); SODIUM LEVEL 144 MEQ/L (136-145); TOTAL PROTEIN 6.8 GM/DL (6.4-8.2)
[2017-11-24] MEDS: PIPERACILLIN/TAZOBACTAM SOD 3.375 GM in APPROPRIATE DILUENT 1 EA IV ×3 (08:34→17:59)
[2017-11-24] MEDS: GABAPENTIN 300 MG CAP PO ×3 (08:34→21:19)
[2017-11-24] MEDS: CARISOPRODOL 350 MG TAB PO ×2 (08:34→21:18)
[2017-11-24] MEDS: DOCUSATE SODIUM 100 MG CAP PO ×2 (08:34→21:18)
[2017-11-24] MEDS: POTASSIUM CHLORIDE 10 MEQ SR TABLET PO (08:35)
[2017-11-24] MEDS: IBUPROFEN 800 MG TAB PO ×2 (08:35→21:17)
[2017-11-24] MEDS: FOLIC ACID 1 MG TAB PO (12:18)
[2017-11-24] MEDS: DULoxetine 30 MG CAP (CYMBALTA) PO (21:18)
[2017-11-24] MEDS: ATORVASTATIN 20 MG TAB PO (21:19)
[2017-11-24] MEDS: rOPINIRole 0.25 MG TAB(REQUIP) PO (21:19)
[2017-11-24] MEDS: traZODone 50 MG TAB PO (21:19)
[2017-11-25] MEDS: PIPERACILLIN/TAZOBACTAM SOD 3.375 GM in APPROPRIATE DILUENT 1 EA IV ×4 (01:18→18:12)
[2017-11-25] MEDS: BENZONATATE 100 MG CAP PO ×5 (01:18→23:09)
[2017-11-25] MEDS: IPRATROPIUM 0.5MG/ALBUTEROL 2.5MG INH SOL UD 3ML (DUONEB)(J7620) NEB ×5 (01:40→23:58)
[2017-11-25] MEDS: HEPARIN SOD (PORCINE) 5000 UNITS/ML VIAL SC ×3 (05:37→22:01)
[2017-11-25] MEDS: PERCOCET 5MG/325MG TAB PO ×3 (05:38→18:30)
[2017-11-25 06:29] LABS: HEMATOCRIT 35.3 % (36.0-47.0); HEMOGLOBIN 11.5 g/dl (12.0-16.0); MEAN CORPUSCULAR HEMOGLOBIN 29.2 pg (27.0-33.0); MEAN CORPUSCULAR HGB CONC 32.6 g/dl (32.0-36.5); MEAN CORPUSCULAR VOLUME 89.6 fl (80.0-96.0); PLATELET COUNT, AUTOMATED 356 10^3/uL (150-450); RED BLOOD COUNT 3.94 10^6/uL (4.00-5.40); RED CELL DISTRIBUTION WIDTH 16.2 % (11.5-14.5); WHITE BLOOD COUNT 9.5 10^3/uL (4.0-10.0)
[2017-11-25 06:56] LABS: ALBUMIN 1.7 GM/DL (3.2-5.2); ALBUMIN/GLOBULIN RATIO 0.32 (1.00-1.93); ALKALINE PHOSPHATASE 152 U/L (45-117); ALT/SGPT 56 U/L (12-78); ANION GAP 6 MEQ/L (8-16); AST/SGOT 38 U/L (7-37); BILIRUBIN,TOTAL 0.2 MG/DL (0.2-1.0); BLOOD UREA NITROGEN 6 MG/DL (7-18); CALCIUM LEVEL 8.9 MG/DL (8.5-10.1); CARBON DIOXIDE LEVEL 28 MEQ/L (21-32); CHLORIDE LEVEL 108 MEQ/L (98-107); CREATININE FOR GFR 0.55 MG/DL (0.55-1.30); GLOMERULAR FILTRATION RATE > 60.0 (>51); GLUCOSE, FASTING 101 MG/DL (70-100); MAGNESIUM LEVEL 1.7 MG/DL (1.8-2.4); POTASSIUM SERUM 4.5 MEQ/L (3.5-5.1); SODIUM LEVEL 142 MEQ/L (136-145)
[2017-11-25 08:51] LABS: FOLATE 2.4 NG/ML (>5.4)
[2017-11-25] MEDS: GABAPENTIN 300 MG CAP PO ×3 (08:55→20:03)
[2017-11-25] MEDS: POTASSIUM CHLORIDE 10 MEQ SR TABLET PO (08:56)
[2017-11-25] MEDS: FOLIC ACID 1 MG TAB PO (08:56)
[2017-11-25] MEDS: CARISOPRODOL 350 MG TAB PO ×2 (08:56→20:03)
[2017-11-25] MEDS: DOCUSATE SODIUM 100 MG CAP PO ×2 (08:56→20:03)
[2017-11-25] MEDS: MAG SULF 1GM/100ML (MAG RUN) 1 GM in APPROPRIATE DILUENT 1 EA IV ×2 (14:07→15:00)
[2017-11-25] MEDS: IBUPROFEN 800 MG TAB PO ×2 (15:52→22:00)
[2017-11-25] MEDS: traZODone 50 MG TAB PO (20:03)
[2017-11-25] MEDS: rOPINIRole 0.25 MG TAB(REQUIP) PO (20:03)
[2017-11-25] MEDS: DULoxetine 30 MG CAP (CYMBALTA) PO (20:03)
[2017-11-25] MEDS: ATORVASTATIN 20 MG TAB PO (20:04)
[2017-11-26] MEDS: PERCOCET 5MG/325MG TAB PO ×4 (00:41→20:03)
[2017-11-26] MEDS: PIPERACILLIN/TAZOBACTAM SOD 3.375 GM in APPROPRIATE DILUENT 1 EA IV ×3 (01:00→13:00)
[2017-11-26 06:35] LABS: HEMATOCRIT 37.9 % (36.0-47.0); HEMOGLOBIN 11.9 g/dl (12.0-16.0); MEAN CORPUSCULAR HEMOGLOBIN 28.7 pg (27.0-33.0); MEAN CORPUSCULAR HGB CONC 31.4 g/dl (32.0-36.5); MEAN CORPUSCULAR VOLUME 91.3 fl (80.0-96.0); PLATELET COUNT, AUTOMATED 380 10^3/uL (150-450); RED BLOOD COUNT 4.15 10^6/uL (4.00-5.40); RED CELL DISTRIBUTION WIDTH 16.1 % (11.5-14.5); WHITE BLOOD COUNT 9.7 10^3/uL (4.0-10.0)
[2017-11-26] MEDS: BENZONATATE 100 MG CAP PO ×3 (06:53→20:08)
[2017-11-26] MEDS: HEPARIN SOD (PORCINE) 5000 UNITS/ML VIAL SC ×3 (06:54→23:21)
[2017-11-26 06:57] LABS: ALBUMIN 1.9 GM/DL (3.2-5.2); ALBUMIN/GLOBULIN RATIO 0.37 (1.00-1.93); ALKALINE PHOSPHATASE 147 U/L (45-117); ALT/SGPT 47 U/L (12-78); ANION GAP 4 MEQ/L (8-16); AST/SGOT 27 U/L (7-37); BILIRUBIN,TOTAL 0.2 MG/DL (0.2-1.0); BLOOD UREA NITROGEN 9 MG/DL (7-18); CALCIUM LEVEL 8.6 MG/DL (8.5-10.1); CARBON DIOXIDE LEVEL 31 MEQ/L (21-32); CHLORIDE LEVEL 106 MEQ/L (98-107); CREATININE FOR GFR 0.57 MG/DL (0.55-1.30); GLOMERULAR FILTRATION RATE > 60.0 (>51); GLUCOSE, FASTING 94 MG/DL (70-100); MAGNESIUM LEVEL 2.4 MG/DL (1.8-2.4); POTASSIUM SERUM 4.4 MEQ/L (3.5-5.1); SODIUM LEVEL 141 MEQ/L (136-145)
[2017-11-26] MEDS: IPRATROPIUM 0.5MG/ALBUTEROL 2.5MG INH SOL UD 3ML (DUONEB)(J7620) NEB ×3 (07:35→20:00)
[2017-11-26] MEDS: FOLIC ACID 1 MG TAB PO (08:55)
[2017-11-26] MEDS: DOCUSATE SODIUM 100 MG CAP PO ×2 (08:55→20:01)
[2017-11-26] MEDS: CARISOPRODOL 350 MG TAB PO ×2 (08:55→20:02)
[2017-11-26] MEDS: POTASSIUM CHLORIDE 10 MEQ SR TABLET PO (08:55)
[2017-11-26] MEDS: GABAPENTIN 300 MG CAP PO ×3 (08:55→20:02)
[2017-11-26] MEDS: IBUPROFEN 800 MG TAB PO (16:11)
[2017-11-26] MEDS: rOPINIRole 0.25 MG TAB(REQUIP) PO (20:01)
[2017-11-26] MEDS: DULoxetine 30 MG CAP (CYMBALTA) PO (20:01)
[2017-11-26] MEDS: ATORVASTATIN 20 MG TAB PO (20:01)
[2017-11-26] MEDS: traZODone 50 MG TAB PO (20:02)
[2017-11-26] MEDS: guaiFENesin ER 600 MG TAB PO (20:02)
[2017-11-26] MEDS: AUGMENTIN 875 MG TAB PO (20:02)
[2017-11-26] MEDS: hydrOXYzine 50 MG TAB PO (20:07)
[2017-11-26] MEDS ORDERED: guaiFENesin ER 600 MG TAB PO (21:00)
[2017-11-27] MEDS: IPRATROPIUM 0.5MG/ALBUTEROL 2.5MG INH SOL UD 3ML (DUONEB)(J7620) NEB ×4 (02:00→20:44)
[2017-11-27 06:00] LABS: HEMATOCRIT 36.6 % (36.0-47.0); HEMOGLOBIN 11.5 g/dl (12.0-16.0); MEAN CORPUSCULAR HEMOGLOBIN 28.5 pg (27.0-33.0); MEAN CORPUSCULAR HGB CONC 31.4 g/dl (32.0-36.5); MEAN CORPUSCULAR VOLUME 90.8 fl (80.0-96.0); PLATELET COUNT, AUTOMATED 377 10^3/uL (150-450); RED BLOOD COUNT 4.03 10^6/uL (4.00-5.40); RED CELL DISTRIBUTION WIDTH 16.2 % (11.5-14.5); WHITE BLOOD COUNT 11.2 10^3/uL (4.0-10.0)
[2017-11-27] MEDS: PERCOCET 5MG/325MG TAB PO ×3 (06:05→18:59)
[2017-11-27] MEDS: HEPARIN SOD (PORCINE) 5000 UNITS/ML VIAL SC ×3 (06:05→21:56)
[2017-11-27 06:24] LABS: ALBUMIN/GLOBULIN RATIO 0.39 (1.00-1.93); ALKALINE PHOSPHATASE 140 U/L (45-117); ALT/SGPT 38 U/L (12-78); ANION GAP 5 MEQ/L (8-16); AST/SGOT 24 U/L (7-37); BILIRUBIN,TOTAL 0.2 MG/DL (0.2-1.0); BLOOD UREA NITROGEN 10 MG/DL (7-18); CALCIUM LEVEL 8.8 MG/DL (8.5-10.1); CARBON DIOXIDE LEVEL 27 MEQ/L (21-32); CHLORIDE LEVEL 108 MEQ/L (98-107); CREATININE FOR GFR 0.53 MG/DL (0.55-1.30); GLOMERULAR FILTRATION RATE > 60.0 (>51); GLUCOSE, FASTING 110 MG/DL (70-100); MAGNESIUM LEVEL 2.2 MG/DL (1.8-2.4); POTASSIUM SERUM 4.3 MEQ/L (3.5-5.1); SODIUM LEVEL 140 MEQ/L (136-145); TOTAL PROTEIN 7.1 GM/DL (6.4-8.2)
[2017-11-27] MEDS: DOCUSATE SODIUM 100 MG CAP PO ×2 (09:08→21:55)
[2017-11-27] MEDS: OMEPRAZOLE 20 MG CAP PO (09:08)
[2017-11-27] MEDS: guaiFENesin ER 600 MG TAB PO ×2 (09:08→21:53)
[2017-11-27] MEDS: CARISOPRODOL 350 MG TAB PO ×2 (09:08→21:53)
[2017-11-27] MEDS: GABAPENTIN 300 MG CAP PO ×3 (09:08→21:53)
[2017-11-27] MEDS: POTASSIUM CHLORIDE 10 MEQ SR TABLET PO (09:09)
[2017-11-27] MEDS: FOLIC ACID 1 MG TAB PO (09:09)
[2017-11-27] MEDS: AUGMENTIN 875 MG TAB PO ×2 (09:09→21:53)
[2017-11-27] MEDS: IBUPROFEN 800 MG TAB PO ×2 (11:55→21:54)
[2017-11-27] MEDS ORDERED: HEPARIN SOD (PORCINE) 5000 UNITS/ML VIAL As Ordered (21:40)
[2017-11-27] MEDS: traZODone 50 MG TAB PO (21:53)
[2017-11-27] MEDS: rOPINIRole 0.25 MG TAB(REQUIP) PO (21:54)
[2017-11-27] MEDS: ATORVASTATIN 20 MG TAB PO (21:55)
[2017-11-27] MEDS: DULoxetine 30 MG CAP (CYMBALTA) PO (21:56)
[2017-11-28] MEDS: IPRATROPIUM 0.5MG/ALBUTEROL 2.5MG INH SOL UD 3ML (DUONEB)(J7620) NEB ×4 (02:00→20:53)
[2017-11-28 05:59] LABS: HEMATOCRIT 40.1 % (36.0-47.0); HEMOGLOBIN 12.5 g/dl (12.0-16.0); MEAN CORPUSCULAR HEMOGLOBIN 29.1 pg (27.0-33.0); MEAN CORPUSCULAR HGB CONC 31.2 g/dl (32.0-36.5); MEAN CORPUSCULAR VOLUME 93.5 fl (80.0-96.0); PLATELET COUNT, AUTOMATED 373 10^3/uL (150-450); RED BLOOD COUNT 4.29 10^6/uL (4.00-5.40); RED CELL DISTRIBUTION WIDTH 16.2 % (11.5-14.5); WHITE BLOOD COUNT 13.1 10^3/uL (4.0-10.0)
[2017-11-28] MEDS: HEPARIN SOD (PORCINE) 5000 UNITS/ML VIAL SC ×3 (06:00→21:12)
[2017-11-28] MEDS: PERCOCET 5MG/325MG TAB PO ×4 (06:01→23:41)
[2017-11-28 06:24] LABS: ALBUMIN 2.2 GM/DL (3.2-5.2); ALBUMIN/GLOBULIN RATIO 0.39 (1.00-1.93); ALKALINE PHOSPHATASE 135 U/L (45-117); ALT/SGPT 35 U/L (12-78); ANION GAP 7 MEQ/L (8-16); AST/SGOT 27 U/L (7-37); BILIRUBIN,TOTAL 0.2 MG/DL (0.2-1.0); BLOOD UREA NITROGEN 12 MG/DL (7-18); CALCIUM LEVEL 8.6 MG/DL (8.5-10.1); CARBON DIOXIDE LEVEL 29 MEQ/L (21-32); CHLORIDE LEVEL 106 MEQ/L (98-107); GLOMERULAR FILTRATION RATE > 60.0 (>51); GLUCOSE, FASTING 109 MG/DL (70-100); MAGNESIUM LEVEL 2.3 MG/DL (1.8-2.4); POTASSIUM SERUM 4.6 MEQ/L (3.5-5.1); SODIUM LEVEL 142 MEQ/L (136-145); TOTAL PROTEIN 7.8 GM/DL (6.4-8.2)
[2017-11-28] MEDS: DOCUSATE SODIUM 100 MG CAP PO ×2 (09:28→21:10)
[2017-11-28] MEDS: guaiFENesin ER 600 MG TAB PO ×2 (09:28→21:11)
[2017-11-28] MEDS: FOLIC ACID 1 MG TAB PO (09:28)
[2017-11-28] MEDS: CARISOPRODOL 350 MG TAB PO ×2 (09:28→21:11)
[2017-11-28] MEDS: GABAPENTIN 300 MG CAP PO ×3 (09:28→21:11)
[2017-11-28] MEDS: POTASSIUM CHLORIDE 10 MEQ SR TABLET PO (09:29)
[2017-11-28] MEDS: OMEPRAZOLE 20 MG CAP PO (09:29)
[2017-11-28] MEDS: LACTOBACILLUS ACIDOPHILUS CAP (BACID) PO ×2 (12:07→21:08)
[2017-11-28] MEDS: PIPERACILLIN/TAZOBACTAM SOD 3.375 GM in APPROPRIATE DILUENT 1 EA IV ×3 (12:07→23:41)
[2017-11-28] MEDS: IBUPROFEN 800 MG TAB PO ×2 (14:34→21:09)
[2017-11-28] MEDS: METHOCARBAMOL 500 MG TAB PO ×2 (16:53→23:41)
[2017-11-28] MEDS ORDERED: HEPARIN SOD (PORCINE) 5000 UNITS/ML VIAL As Ordered (20:48)
[2017-11-28] MEDS: rOPINIRole 0.25 MG TAB(REQUIP) PO (21:09)
[2017-11-28] MEDS: traZODone 50 MG TAB PO (21:09)
[2017-11-28] MEDS: ATORVASTATIN 20 MG TAB PO (21:10)
[2017-11-28] MEDS: LISINOPRIL 10 MG TAB PO (21:11)
[2017-11-28] MEDS: DULoxetine 30 MG CAP (CYMBALTA) PO (21:12)
[2017-11-29] MEDS: IPRATROPIUM 0.5MG/ALBUTEROL 2.5MG INH SOL UD 3ML (DUONEB)(J7620) NEB ×2 (02:00→08:37)
[2017-11-29] MEDS: HEPARIN SOD (PORCINE) 5000 UNITS/ML VIAL SC (05:39)
[2017-11-29] MEDS: PIPERACILLIN/TAZOBACTAM SOD 3.375 GM in APPROPRIATE DILUENT 1 EA IV ×2 (05:39→11:36)
[2017-11-29] MEDS: PERCOCET 5MG/325MG TAB PO ×2 (05:40→11:36)
[2017-11-29 07:39] LABS: HEMATOCRIT 37.5 % (36.0-47.0); HEMOGLOBIN 11.8 g/dl (12.0-16.0); MEAN CORPUSCULAR HEMOGLOBIN 29.2 pg (27.0-33.0); MEAN CORPUSCULAR HGB CONC 31.5 g/dl (32.0-36.5); MEAN CORPUSCULAR VOLUME 92.8 fl (80.0-96.0); PLATELET COUNT, AUTOMATED 364 10^3/uL (150-450); RED BLOOD COUNT 4.04 10^6/uL (4.00-5.40); RED CELL DISTRIBUTION WIDTH 16.1 % (11.5-14.5); WHITE BLOOD COUNT 12.2 10^3/uL (4.0-10.0)
[2017-11-29 07:42] LABS: POS COUNT POS FLAG; POSITIVE DIFF POS FLAG; POSITIVE MORPH POS FLAG
[2017-11-29 07:43] LABS: ADD MANUAL DIFFER YES; DIFF SLIDE NUMBER 78
[2017-11-29 07:58] LABS: ALBUMIN/GLOBULIN RATIO 0.38 (1.00-1.93); ALKALINE PHOSPHATASE 125 U/L (45-117); ALT/SGPT 35 U/L (12-78); ANION GAP 7 MEQ/L (8-16); AST/SGOT 28 U/L (7-37); BILIRUBIN,TOTAL 0.2 MG/DL (0.2-1.0); BLOOD UREA NITROGEN 18 MG/DL (7-18); CALCIUM LEVEL 8.5 MG/DL (8.5-10.1); CARBON DIOXIDE LEVEL 26 MEQ/L (21-32); CHLORIDE LEVEL 107 MEQ/L (98-107); CREATININE FOR GFR 0.68 MG/DL (0.55-1.30); GLOMERULAR FILTRATION RATE > 60.0 (>51); GLUCOSE, FASTING 116 MG/DL (70-100); MAGNESIUM LEVEL 2.1 MG/DL (1.8-2.4); POTASSIUM SERUM 4.3 MEQ/L (3.5-5.1); SODIUM LEVEL 140 MEQ/L (136-145); TOTAL PROTEIN 7.3 GM/DL (6.4-8.2)
[2017-11-29] MEDS: LACTOBACILLUS ACIDOPHILUS CAP (BACID) PO (08:53)
[2017-11-29] MEDS: FOLIC ACID 1 MG TAB PO (08:53)
[2017-11-29] MEDS: CARISOPRODOL 350 MG TAB PO (08:54)
[2017-11-29] MEDS: DOCUSATE SODIUM 100 MG CAP PO (08:54)
[2017-11-29] MEDS: guaiFENesin ER 600 MG TAB PO (08:54)
[2017-11-29] MEDS: OMEPRAZOLE 20 MG CAP PO (08:54)
[2017-11-29] MEDS: GABAPENTIN 300 MG CAP PO (08:54)
[2017-11-29] MEDS: POTASSIUM CHLORIDE 10 MEQ SR TABLET PO (08:55)
[2017-11-29 09:08] LABS: BANDS 2 % (< 11); LYMPHOCYTES 42 % (16-52); METAMYELOCYTES 3 % (0-0); MONOCYTES 4 % (0-8); MYELOCYTES 7 % (0-0); NEUTROPHILS 42 % (35-75)
[2017-11-29 09:10] LABS: ANISOCYTOSIS 1+; PLATELET ESTIMATE NORMAL (NORMAL)
== END 2017-11-29 13:35 | disposition home or self-care (01) | DRG 178 ==
LOC: M MS5PR 11-25 20:54 → M ED 16:30 → M ED INP 19:33 → M MSPAV 21:32
PROC: 30233N1 Transfusion of Nonautologous Red Blood Cells into Peripheral Vein, Percutaneous Approach (ICD-10-PCS; principal; 2017-11-23)
DX: J85.1 Abscess of lung with pneumonia (principal); K86.1 Other chronic pancreatitis; E87.6 Hypokalemia; Z79.899 Other long term (current) drug therapy; I10 Essential (primary) hypertension; Z87.891 Personal history of nicotine dependence; Z96.652 Presence of left artificial knee joint; R19.7 Diarrhea, unspecified; D72.829 Elevated white blood cell count, unspecified; E78.5 Hyperlipidemia, unspecified; G89.29 Other chronic pain; R29.6 Repeated falls; D64.9 Anemia, unspecified; R91.8 Other nonspecific abnormal finding of lung field

== ENCOUNTER → 2018-01-11 | Outpatient (CLI) | payer MEDICARE, MEDICAID | LOC: M RAD 07:20 | DX: J85.1 Abscess of lung with pneumonia (principal) | CPT/HCPCS: 71250 ==

== ENCOUNTER → 2018-02-24 | Outpatient (CLI) | payer MEDICARE, MEDICAID | LOC: M PAIN 11:30 | DX: M51.26 Other intervertebral disc displacement, lumbar region (principal); M54.2 Cervicalgia; F31.9 Bipolar disorder, unspecified; F43.10 Post-traumatic stress disorder, unspecified; I10 Essential (primary) hypertension; E78.00 Pure hypercholesterolemia, unspecified; K21.9 Gastro-esophageal reflux disease without esophagitis; M85.80 Other specified disorders of bone density and structure, unspecified site; Z79.891 Long term (current) use of opiate analgesic; Z79.899 Other long term (current) drug therapy; Z96.652 Presence of left artificial knee joint; Z85.42 Personal history of malignant neoplasm of other parts of uterus; Z87.891 Personal history of nicotine dependence | CPT/HCPCS: G0463 ==

== ENCOUNTER → 2018-04-11 | Outpatient (REF) | payer MEDICARE, MEDICAID ==
[2018-04-11 12:55] LABS: ALBUMIN 3.3 GM/DL (3.2-5.2); ALBUMIN/GLOBULIN RATIO 0.92 (1.00-1.93); ALKALINE PHOSPHATASE 93 U/L (45-117); ALT/SGPT 24 U/L (12-78); ANION GAP 6 MEQ/L (8-16); AST/SGOT 14 U/L (7-37); BILIRUBIN,TOTAL 0.3 MG/DL (0.2-1.0); BLOOD UREA NITROGEN 12 MG/DL (7-18); CALCIUM LEVEL 9.4 MG/DL (8.5-10.1); CARBON DIOXIDE LEVEL 32 MEQ/L (21-32); CHLORIDE LEVEL 108 MEQ/L (98-107); CHOLESTEROL LEVEL 202 MG/DL (<200); CHOLESTEROL RISK RATIO 4.809 (<5); CREATININE FOR GFR 0.76 MG/DL (0.55-1.30); GLOMERULAR FILTRATION RATE > 60.0 (>51); GLUCOSE, FASTING 113 MG/DL (70-100); HDL CHOLESTEROL 42 MG/DL (>40); LDL CHOLESTEROL 118.8 MG/DL (<100); NON-HDL-C 160 MG/DL; POTASSIUM SERUM 4.3 MEQ/L (3.5-5.1); SODIUM LEVEL 146 MEQ/L (136-145); TOTAL PROTEIN 6.9 GM/DL (6.4-8.2); TRIGLYCERIDES LEVEL 206 MG/DL (<150)
[2018-04-11 13:08] LABS: ESTIMATED AVERAGE GLUCOSE 123 MG/DL (60-110); HEMOGLOBIN A1c 5.9 %
== END ==
LOC: M SFHCLERA 08:34 → M SFHCADAM 08:44
DX: E78.5 Hyperlipidemia, unspecified (principal); R73.02 Impaired glucose tolerance (oral)
CPT/HCPCS: 80053

== ENCOUNTER → 2018-04-14 | Outpatient (CLI) | payer MEDICARE, MEDICAID | LOC: M RAD 17:28 | DX: R91.8 Other nonspecific abnormal finding of lung field (principal) | CPT/HCPCS: 71250 ==

== ENCOUNTER → 2018-11-07 | Outpatient (CLI) | payer MEDICARE, MEDICAID ==
[~2018-11-07] MED LIST changes: +ATOR40TA75 PO; +AUGM875T28 PO; +BENZ-18 PO; +CARI1TAB7 PO; +DULO1CAP2 PO; +FOLI1TAB11 PO; +GABA-843; +GABA-843 PO; +HYDR50TA70 PO; +IBUP80TA PO; -ISOVUE-M 300 61% 15ML VIAL (Q9967) As Ordered; -LIDOCAINE 1% SDV INJ 30 ML VIAL As Ordered; +LISI10TA4 PO; +METH1TAB40 PO; +MUCI600T37 PO; +OXYCODONE PO; +RISATAB3 PO; +ROBA500T PO; +ROPI0.253 PO; +TRAZ1TAB14 PO; +VOLT1GEL15 TD; +VOLT1GEL15 TOP; -diazePAM 5 MG TAB As Ordered; -methylPREDNISolone SUSP 40 MG/ML (DEPO-medrol) VIAL (J1030) As Ordered; -oxyCODONE 5MG TAB As Ordered
--- NOTE | 2018-11-07 18:01 | REP ---
CT chest without contrast: History: Nonspecific abnormality in the lung moeller. Comparison is made with prior chest CT studies, the most recent which is from April 14, 2018. The most remote prior CT study of the chest is dated November 21, 2017. Findings: There is chronic atelectasis and bronchiectasis in the right upper lobe bronchi with some adjacent linear fibrosis. This is essentially unchanged from the most recent prior study of April 14, 2018 and is much improved from the large area of dense consolidation seen in the right apex on November 21, 2017. There is an area of pleuroparenchymal fibrosis in the superior segment right lower lobe also improved from the earliest prior study and unchanged or perhaps a little less prominent than on April 14, 2018. No new infiltrate is seen. No pleural or pericardial effusion is noted. No progressive change is noted. No new pulmonary nodule is seen. Vascular calcifications again noted. No adrenal lesion is observed. There are multiple calcifications in the body of the pancreas consistent with chronic pancreatitis changes. Impression: Pleuroparenchymal fibrotic changes right apex with chronic volume loss and a bronchiectasis right apical airways unchanged from April 14, 2018. There is some residual pleuroparenchymal fibrosis in the superior segment of the right lower lobe which is improved from April 14, 2018. Findings are much improved when compared with the original CT study of November 21, 2017. Electronically Signed by Boris Norton MD 11/07/2018 06:23 P
== END ==
LOC: M RAD 16:01
PROVIDERS: ATTEND Internal Medicine Pulmonary Disease
DX: R91.8 Other nonspecific abnormal finding of lung field (principal)

== ENCOUNTER → 2018-11-24 | Outpatient (CLI) | payer MEDICARE, MEDICAID ==
--- NOTE | 2018-12-09 01:37 | ECWPNPC ---
PATIENT NAME: CORIE CAST : 1960 GENDER: FEMALE VISIT DATE: 11/24/2018 DISCHARGE DATE: 11/24/18 1250 VISIT LOCKED DATE TIME: PHYSICIAN: LOUIE NICHOLAS RESOURCE: LOUIE NICHOLAS REASON FOR APPOINTMENT 1. BACK HISTORY OF PRESENT ILLNESS HISTORY OF PRESENT ILLNESS: PAIN THE PATIENT DESCRIBES THE PAIN... FALL RISK SCREENING: SCREENING : NO FALLS IN THE PAST YEAR. CURRENT MEDICATIONS TAKING CLARITIN 10 MG TABLET 1 TABLET ORALLY ONCE A DAY TAKING TRAZODONE HCL 150 MG TABLET TAKE 1 TABLET BY MOUTH AT BEDTIME. TAKING CARISOPRODOL 350 MG TABLET 1 TABLET NEEDED ORALLY BID MDD=2 TAKING PERCOCET 5-325 MG TABLET 1 TABLET ORALLY EVERY 8 HRS PRN PAIN MDD=3 FOR 30 DAY SUPPLY NOT-TAKING HYDROXYZINE HCL 50 MG TABLET 2 TABLET NEEDED ORALLY EVERY 6 HRS NOT-TAKING PEPCID 20 MG TABLET 1 TABLET AT BEDTIME ORALLY BEFORE BEDTIME NOT-TAKING BLOOD PRESSURE CUFF - MISCELLANEOUS DIRECTED , NOTES: I10. CHECK AND RECORD BP DAILY. NOT-TAKING IBUPROFEN 800 MG TABLET 1 TABLET WITH FOOD OR MILK ORALLY THREE TIMES A DAY NEEDED NOT-TAKING TRAZODONE HCL 150 MG TABLET 1 TABLET AT BEDTIME ORALLY ONCE A DAY NOT-TAKING GABAPENTIN 300 MG CAPSULE 1 CAPSULE ORALLY 1 IN AM, 1 IN AFTERNOON AND 2 AT BEDTIME NOT-TAKING ATORVASTATIN CALCIUM 80 MG TABLET TAKE 1 TABLET BY MOUTH DAILY. NOT-TAKING DULOXETINE HCL 30 MG CAPSULE DELAYED RELEASE PARTICLES TAKE 1 CAPSULE BY MOUTH TWICE DAILY. NOT-TAKING ROPINIROLE HCL 0.25 MG TABLET TAKE 1 TABLET BY MOUTH 1 TO 3 HOURS BEFORE BEDTIME. NOT-TAKING LOSARTAN POTASSIUM 50 MG TABLET TAKE 1 TABLET BY MOUTH DAILY. NOT-TAKING VOLTAREN 1 % GEL 4G TRANSDERMAL ON THE LOW BACK EVERY 6 HOURS NEEDED NOT-TAKING SEROQUEL 300 MG TABLET 1 TABLET AT BEDTIME ORALLY BEFORE BEDTIME, NOTES: 10/18/12@1999 NOT-TAKING AMOXICILLIN-POT CLAVULANATE 875-125 MG TABLET TAKE ONE TABLET BY MOUTH TWICE A DAY ORAL NOT-TAKING MUCINEX 600 MG TABLET EXTENDED RELEASE 12 HOUR TAKE ONE TABLET BY MOUTH TWICE A DAY ORAL NOT-TAKING CHERELLE-BID PROBIOTIC - TABLET TAKE ONE TABLET BY MOUTH TWICE A DAY ORAL MEDICATION LIST REVIEWED AND RECONCILED WITH THE PATIENT PAST MEDICAL HISTORY CHRONIC BACK AND KNEE PAIN BIPOLAR/ MOOD SWINGS/ PANIC DISORDER HTN HIGH CHOLESTEROL UTERINE CANCER GERD OSTEOPOROSIS FIBROMYALGIA ALLERGIES N.K.D.A. SURGICAL HISTORY 2 C-SETIONS TUBAL FULL HYSTERECTOMY AGE 27 LEFT KNEE REPLACED 2014 LEFT WRIST ORIF FAMILY HISTORY FATHER: MOTHER: , DIAGNOSED WITH HEART DISEASE 2 BROTHER(S) , 1 SISTER(S) . 3DAUGHTER(S) - HEALTHY. SOCIAL HISTORY GENERAL: TOBACCO USE ARE YOU A:FORMER SMOKER HOW LONG HAS IT BEEN SINCE YOU LAST SMOKED?1-5 YEARS LATEX QUESTIONNAIRE LATEX ALLERGY : HAVE YOU EVER DEVELOPED ANY TYPE OF REACTION AFTER HANDLING LATEX PRODUCTS SUCH RUBBER GLOVES, CONDOMS, DIAPHRAGMS, BALLOONS, SOCKS, OR UNDERWEAR?NO LATEX ALLERGY : HAVE YOU EVER DEVELOPED ANY TYPE OF REACTION DURING OR AFTER DENTAL APPOINTMENT, VAGINAL/RECTAL EXAMINATION, SURGICAL PROCEDURE, OR ANY OTHER EXPOSURE?NO LATEX RISK : HAVE YOU EVER HAD ANY DIFFICULTY BREATHING OR HIVES AFTER EATING OR HANDLING ANY FRUITS, OR VEGETABLES; SUCH KIWI, BANANAS, STONE FRUITS, OR CHESTNUTSNO LATEX RISK : DO YOU HAVE A PREVIOUS PERSONAL HISTORY OF MORE THAN NINE SURGERIES, SPINA BIFIDA, OR REPEATED CATHERTIZATIONS? NO LATEX RISK : ARE YOU FREQUENTLY EXPOSED TO LATEX PRODUCTS IN YOUR OCCUPATION?NO DATE ASKED : 11/24/2018 ALCOHOL SCREENING DID YOU HAVE A DRINK CONTAINING ALCOHOL IN THE PAST YEAR?YES HOW OFTEN DID YOU HAVE SIX OR MORE DRINKS ON ONE OCCASION IN THE PAST YEAR?NEVER (0 POINTS) HOW MANY DRINKS DID YOU HAVE ON A TYPICAL DAY WHEN YOU WERE DRINKING IN THE PAST YEAR?1 OR 2 (0 POINTS) HOW OFTEN DID YOU HAVE A DRINK CONTAINING ALCOHOL IN THE PAST YEAR?MONTHLY OR LESS (1 POINT) POINTS1 INTERPRETATIONNEGATIVE RECREATIONAL DRUG USE DRUG USE?NO CAFFEINE CAFFEINE USE?YES HOW OFTEN AND HOW MUCH? COFFEE 3, PEPSI - 1-2 HIV / HEP-C SCREENING HIV TEST OFFERED TO PATIENT:YES DATE OFFERED:05/19/2017 TEST ACCEPTED:NO HEP-C TEST OFFERED TO PATIENT:NO REASON:PATIENT DECLINED PENTECOSTALISM [id number] TAOISM LANGUAGE LANGUAGES SPOKEN:GERMAN LEARNING BARRIERS / SPECIAL NEEDS CHANGE FROM LAST VISIT?NO BARRIERS TO LEARNING?NO HEARING IMPAIRED?NO VISION IMPAIRED?YES COGNITIVELY IMPAIRED?NO :CORRECTIVE LENSES READINESS TO LEARN?YES LEARNING PREFERENCES?NO LEARNING CAPABILITIES PRESENT?YES EMOTIONAL BARRIERS?YES BIPOLAR SPECIAL DEVICES?YES :CANE, WALKER SPECIAL EDUCATION CASE MANAGER NEEDED?NO OCCUPATION: DISABLED. DIET: REGULAR. EXERCISE: WALKS WITH WALKER. MARITAL STATUS: SINGLE. PAIN CLINIC PFS, CLERGY, PUBLIC HEALTH REFERRALS PFS REFERRAL NEEDED?NO CLERGY REFERRAL NEEDED?NO PUBLIC HEALTH REFERRAL NEEDED?NO WAS THE PROVIDER NOTIFIED OF ANY PERTINENT INFO?NO HAS THE PATIENT BEEN EDUCATED REGARDING HIS/HER PLAN OF CARE?YES HAS THE PATIENT BEEN EDUCATED REGARDING PAIN, THE RISK FOR PAIN, THE IMPORTANCE OF EFFECTIVE PAIN MANAGEMENT, AND THE PAIN ASSESSMENT PROCESS?YES ADVANCE DIRECTIVE ADVANCE DIRECTIVE DISCUSSED WITH PATIENT:YES HCP INFORMATION GIVEN TO PATIENT, PATIENT DECLINED ASSISTANCE IN FILLING OUT. REVIEWED WITH PATIENT 11/24/18 1200 JS. HOSPITALIZATION/MAJOR DIAGNOSTIC PROCEDURE ABOVE REVIEW OF SYSTEMS REVIEWED BY: PROVIDER: LOUIE ENGLISH . CONSTITUTIONAL: ANY CHANGE IN YOUR MEDICAL CONDITION? NO . CHILLS NO . FEVER NO . INFECTION: DO YOU HAVE NEW INFECTIONS? NO . DO YOU HAVE HISTORY OF MRSA? NO . MUSCULOSKELETAL: ANY NEW PATTERNS OF PAIN OR NUMBNESS? YES, STATES LEFT ARM PAIN WORSENING AND FIBROMYALGIA PAIN WORSENING IN LEFT SHOULDER AND UPPER BACK AREA . GASTROENTEROLOGY: ANY NEW CHANGE IN BOWEL CONTROL? NO . GENITOURINARY: ANY NEW CHANGE IN BLADDER CONTROL? NO . IS THERE A CHANCE YOU COULD BE ? NO . HEMATOLOGY/LYMPH: DO YOU TAKE ANY BLOOD THINNERS? (FOR EXAMPLE- COUMADIN, PLAVIX, AGGRENOX, PLATEL, PRADAXA, OR XARELTO) NO . WHEN WAS YOUR LAST DOSE? DATE: TIME: . NEUROLOGY: HAVE YOU FALLEN IN THE PAST 12 MONTHS? YES, STATES FALL ABOUT 2 WEEKS AGO, LOWER BACK GAVE OUT ON HER. STATES NO INJURIES, NO ED VISIT . ANY NEW EXTREMITY NUMBNESS OR WEAKNESS? NO . CARDIOLOGY: DO YOU HAVE A PACEMAKER OR DEFIBRILLATOR? NO . RESPIRATORY: HAVE YOU BEEN SICK IN THE PAST WEEK? NO . FEVER NO . FLU LIKE SYMPTOMS? NO . COUGH NO . INTEGUMENTARY: DO YOU HAVE ANY RASHES OR OPEN SORES? NO . ALLERGIC/IMMUNO: ARE YOU ALLERGIC TO IV DYE? NO . ANY NEW ALLERGIES? NO . PSYCHIATRIC: DO YOU HAVE THOUGHTS OF HURTING YOURSELF OR SOMEONE ELSE? NO . ARE YOU ABUSED, NEGLECTED, OR IN AN UNSAFE ENVIRONMENT? NO . ENDOCRINOLOGY: ARE YOU DIABETIC? NO . OTHER: DO YOU NEED ANY PRESCRIPTIONS? NO . IF YES, PLEASE LIST: ____ . ANY NEW PROBLEMS WITH YOUR MEDICATIONS? NO . WHEN DID YOU LAST EAT? ____ . WHEN DID YOU LAST DRINK? ____ . WHAT DID YOU LAST DRINK? ____ . NAME OF PERSON DRIVING YOU HOME? ____ . DO YOU HAVE ANY OTHER QUESTIONS OR CONCERNS NO . VITAL SIGNS WT 123 LBS, HT 63 IN, BMI 21.79 INDEX, BP 138/63 MM HG, HR 56 /MIN, RR 16 /MIN, TEMP 97.3 F, OXYGEN SAT % 98%, SAFE IN ENV? (Y/N) YES, NA INITIALS AW 1145, REVIEWED BY: CHRISTIAN. EXAMINATION GENERAL EXAMINATION: GENERAL APPEARANCE:AWAKE,ALERT ,PLEAASANT . PSYCHAFFECT NORMAL . LUNGS:LUNG LESLIE ARE CLEAR TO AUSCULTATION BILATERALLY. GOOD MOVEMENT OF AIR . HEART:S1, S2 IN A REGULAR RATE AND RHYTHM. NO SIGNIFICANT MURMURS, RUBS OR GALLOPS NOTED . ASSESSMENTS LUMBAR DISC DISPLACEMENT WITHOUT MYELOPATHY - M51.26 (PRIMARY) FIBROMYALGIA - M79.7 TREATMENT LUMBAR DISC DISPLACEMENT WITHOUT MYELOPATHY REFILL PERCOCET TABLET, 5-325 MG, 1 TABLET, ORALLY, EVERY 8 HRS PRN PAIN MDD=3 FOR 30 DAY SUPPLY, 30 DAY(S), 75, REFILLS 0 REFILL CARISOPRODOL TABLET, 350 MG, 1 TABLET NEEDED, ORALLY, BID MDD=2, 30 DAY(S), 60, REFILLS 0 NOTES: ISTOP REGISTRY REVIEWED AND DEMONSTRATES COMPLLIANCE. (REF # [id number] ) BRINGS IN MEDICATIONS WHICH IS APPROPRIATE FOR WHAT WAS DISPENSED. RECENT URINE TOXICOLOGY REVIEWED. NO UNAUTHORIZED MEDICATIONS. NO ILLICIT SUBSTANCES AND PRESCRIBED MEDICATIONS WERE PRESENT. URINE TOX TODAY, RISKS AND BENEFITS OF NARCOTIC/OPIOD MEDICATIONS WERE REVIEWED WITH PATIENT - THIS INCLUDES BUT IS NOT LIMITED TO RISK OF DEPENDANCE/DEVELOPMENT OF ADDICTION, MOOD DISTURBANCE AND DEPRESSION, OSTEOPOROSIS, HORMONAL AND LABIDAL CHANGES, RESPIRATORY DEPRESSION AND . PATIENT IS ADVISED NOT TO DRIVE OR DRINK ALCOHOL WHILE ON THESE MEDICATIONS. PROCEDURE CODES FA211 ESTABILISHED PATIENT [facility] CHARGE DISPOSITION & COMMUNICATION FOLLOW UP 6 WEEKS ELECTRONICALLY SIGNED BY TAMEKA GARCIA ON 12/08/2018 AT 02:15 PM EDT DISCLAIMER : THIS IS A VISIT SUMMARY EXTRACTED FROM THE [facility] CHART. IT IS NOT A COPY OF THE [facility] PROGRESS NOTE. MTDD
== END ==
LOC: M PAIN 11:45
PROVIDERS: ATTEND Nurse Practitioner Family
DX: M51.26 Other intervertebral disc displacement, lumbar region (principal); M79.7 Fibromyalgia; Z86.59 Personal history of other mental and behavioral disorders; I10 Essential (primary) hypertension; E78.00 Pure hypercholesterolemia, unspecified; Z85.42 Personal history of malignant neoplasm of other parts of uterus; M19.90 Unspecified osteoarthritis, unspecified site; Z87.891 Personal history of nicotine dependence; Z79.891 Long term (current) use of opiate analgesic; Z79.899 Other long term (current) drug therapy

== ENCOUNTER 2019-12-18 10:25 | Day surgery (SDC) | payer MEDICARE, MEDICAID ==
[~2019-12-18] VITALS: Ht 162.6 cm; Wt 54.0 kg
[~2019-12-18 10:25] MED LIST changes: +CLON0.5T2; -DULO1CAP2 PO; +DULO1CAP5 PO; +FLUO40CA; +OMEP-218; +OXYC1TAB23; +TRAZ150T90; +ceFAZolin SOD 2 GM in IV 1 EA IV ONE
[2019-12-18] MEDS ORDERED: PHENYLephrine HCL 500 MCG/5 ML (100MCG/ML) SYRINGE (J2370) As Ordered ONE (11:15)
[2019-12-18] MEDS ORDERED: fentaNYL 100 MCG/2 ML INJECTION (J3010) As Ordered ONE ×2 (11:15→13:52)
[2019-12-18] MEDS ORDERED: ePHEDrine SULFATE 25 MG/5 ML(5MG/ML) SYRINGE As Ordered ONE (11:15)
[2019-12-18] MEDS ORDERED: MIDAZOLAM INJ 2 MG/2 ML VIAL (J2250) As Ordered ONE (11:15)
[2019-12-18] MEDS ORDERED: dexameTHASONE 4 MG/ML 1ML VIAL (J1100 PER 1MG) As Ordered ONE (11:16)
[2019-12-18] MEDS ORDERED: LIDOCAINE 2% INJ 100 MG/5 ML SDV (FOR ANES.) As Ordered ONE (11:16)
[2019-12-18] MEDS ORDERED: propofoL 200 MG/20 ML VIAL As Ordered ONE (11:16)
[2019-12-18] MEDS ORDERED: ONDANSETRON 4MG/2ML VIAL (J2405) As Ordered ONE (11:16)
[2019-12-18] MEDS ORDERED: EXCETAB44 PO (11:43)
[2019-12-18] MEDS ORDERED: BUPIVACAINE/EPIN 0.25% 30 ML VIAL As Ordered ONE (12:10)
[2019-12-18] MEDS ORDERED: LR 1,000 ML IV ONE (12:30)
[2019-12-18] MEDS ORDERED: ACETAMINOPHEN 1000MG 100ML IV BTL (OFIRMEV) (J0131 PER 10MG) As Ordered ONE (12:35)
[2019-12-18] MEDS ORDERED: GLYCOPYRROLATE INJ 0.2 MG/ML 2 ML VIAL As Ordered ONE (12:55)
[2019-12-18] MEDS: fentaNYL 100 MCG/2 ML INJECTION (J3010) IV PRN ×3 (13:54→14:05)
[2019-12-18] MEDS ORDERED: MEPERIDINE INJ 25 MG/ML VIAL (J2175) IV PRN (14:00)
[2019-12-18] MEDS ORDERED: METOCLOPRAMIDE INJ 10MG/2ML VIAL (J2765) IV PRN (14:00)
[2019-12-18] MEDS ORDERED: ONDANSETRON 4MG/2ML VIAL (J2405) IV PRN (14:00)
[2019-12-18] MEDS ORDERED: LR 1,000 ML IV SCH (14:00)
[2019-12-18] MEDS ORDERED: PERCOCET 5MG/325MG TAB PO PRN (14:00)
--- NOTE | 2019-12-18 14:41 | REP ---
C-ARM VIEWS RIGHT WRIST: Two C-arm views of the right wrist performed. There is placement of the metallic plate and multiple metallic screws in the distal radius. Osseous structures appear well aligned. Fluoroscopy time 139 seconds. Electronically Signed by Xavi Porter MD 12/18/2019 07:47 P
[2019-12-18] MEDS ORDERED: oxyCODONE 5MG TAB As Ordered ONE (15:28)
[2019-12-18] MEDS ORDERED: oxyCODONE 5MG TAB PO PRN (15:45)
[2019-12-18 15:58] VITALS: BP 132/59
--- NOTE | 2019-12-19 08:50 | RO ---
DATE OF SERVICE: 12/18/2019 PREOPERATIVE DIAGNOSIS: Right distal radius malunion. POSTOPERATIVE DIAGNOSIS: Right distal radius malunion. PROCEDURE: Right open reduction, internal fixation distal radius fracture after osteotomy of distal third radius. SURGEON: Power Askew MD TRANSCRIBING MACHINE MECHANIC: Taisha Chavez PA-C, who was essential for retraction during the moody components of procedure. ANESTHESIA: General. INDICATIONS: A 59-year-old female who suffered a traumatic trip and fall and failed nonoperative modes of treatment and closed reduction and casting. Due to not showing up for followup and previously scheduled surgery, the patient's procedure, unfortunately, had been delayed approximately 6 weeks, becoming a malunion. We discussed the risks and benefits of surgical intervention, including, but not limited to, infection, damage to surrounding structures, incomplete relief, malunion, nonunion, and need for further surgery. Patient expressed understanding and agreement with that plan and wished to proceed. PREOPERATIVE ANTIBIOTICS: 2 grams of Ancef. COMPLICATIONS: None. BLOOD LOSS: Minimal. TOURNIQUET TIME: 52 minutes. OPERATIVE DESCRIPTION: The patient brought back to the operating room (OR) in the supine position. Underwent general anesthesia, at which point the right arm was prepped and draped in the usual fashion. We had time-out, confirming site, side, and surgery. Once all in agreement, we made a longitudinal incision along flexor carpi radialis (FCR). We sharply dissected subcutaneous tissue, careful to control superficial bleeding. We then incised FCR sheath and retracted it radially, incising deep sheath portion, as well. We then encountered flexor pollicis longus (FPL) and retracted it ulnarly, at which point we released the brachial radialis from the distal radius and elevated pronator quadratus off of the sheath. We then identified the fracture site, which had healed. We had to use a combination of a #15 blade, [place], and [place] osteotome to liberate the distal segment, at which point we were able to mobilize it and we then fixed our three-hole distal locking plate distally first and using four locking screws. We confirmed on AP and lateral the placement being out of the joint surface. We then used the plate for an indirect reduction technique using [id number] reduction clamps to clamp that to the shaft and place in three cortical screws holding the plate to shaft. This provided a nice reduction to restore the radial inclination and tilt. However, due to the malunion nature, there was a large gap in bone posteriorly, at which point we opened 6 mL of crushed cancellous bone and used it to pack into the area, along with 3 mL of the DePuy . This filled in nicely on repeat films, at which point we irrigated the wound thoroughly, closed with #3-0 Vicryl, #3-0 nylon, placed her in a dorsal splint and with slight dorsiflexion. Tourniquet was let down. The patient was awakened and taken to postanesthesia care unit (PACU) in stable condition. POSTOPERATIVE PLAN: The patient will work on finger range of motion and pain control. Will see her in the office in 2 weeks for wound recheck and then convert her over to a brace and start range of motion exercises.
== END 2019-12-18 16:10 | disposition home or self-care (01) ==
LOC: M SDC 10:25
PROVIDERS: ATTEND Orthopaedic Surgery Hand Surgery
DX: S52.571P Other intraarticular fracture of lower end of right radius, subsequent encounter for closed fracture with malunion (principal); I10 Essential (primary) hypertension; F41.9 Anxiety disorder, unspecified; F32.9 Major depressive disorder, single episode, unspecified; Z79.899 Other long term (current) drug therapy
CPT/HCPCS: 25405; 76000; C1713; C1762; J0131; J0690; J1100; J2250; J2370; J2405; J3010

== ENCOUNTER → 2025-07-18 | Outpatient (REF) | payer OTHER, MEDICAID ==
[~2025-07-18] MED LIST changes: +ACET-1599 PO; +CARI-555 PO; -CARI1TAB7 PO; +GABA-1172; +GABA-1172 PO; -GABA-843; -GABA-843 PO; +LISI10TA22 PO; -LISI10TA4 PO; +METH-1164 PO; -METH1TAB40 PO; +OMEP-173; -OMEP-218; -ROPI0.253 PO; +ROPI5TAB19 PO; -ceFAZolin SOD 2 GM in IV 1 EA IV ONE
[2025-07-18 18:08] LABS: BASO # 0.1 10^3/uL (0.0-0.2); BASO % 1.0 % (0.0-1.0); EOS # 0.1 10^3/uL (0.0-0.5); EOS % 1.4 % (0.0-3.0); LYMPH # 3.3 10^3/uL (1.5-5.0); LYMPH % 36.7 % (24.0-44.0); MONO # 0.6 10^3/uL (0.0-0.8); MONO % 6.4 % (2.0-8.0); NEUTROPHILS # 4.9 10^3/uL (1.5-8.5); NEUTROPHILS % 53.5 % (36.0-66.0); PLATELET COUNT, AUTOMATED 352 10^3/uL (150-450)
[2025-07-18 18:21] LABS: ALT/SGPT 19.0 U/L (7.0-40); AST/SGOT 19.0 U/L (<34); CALCIUM LEVEL 9.9 MG/DL (8.3-10.6); CARBON DIOXIDE LEVEL 27.0 MMOL/L (20-31); CHLORIDE LEVEL 105.0 MMOL/L (98-107); CHOLESTEROL LEVEL 318.0 MG/DL (<200); CHOLESTEROL RISK RATIO 5.37 (<5); CREATININE FOR GFR 0.8 MG/DL (0.55-1.30); GLOMERULAR FILTRATION RATE 81.2 (>45); LDL CHOLESTEROL 229.4 MG/DL (<100); NON-HDL-C 258.8 MG/DL; POTASSIUM SERUM 5.1 MMOL/L (3.5-5.1); SODIUM LEVEL 143.0 MMOL/L (136-145); TRIGLYCERIDES LEVEL 147.0 MG/DL (<150)
== END ==
LOC: M SFHCADAM 11:56
PROVIDERS: ATTEND Family Medicine
DX: Z00.00 Encounter for general adult medical examination without abnormal findings (principal); I10 Essential (primary) hypertension